=== PATIENT | male | born 1945 | race African-American/Black ===

== ENCOUNTER 2017-10-01 22:19 | Observation (INO) ==
--- NOTE | 2017-10-01 23:32 | Emergency Department Note ---
Disposition Clinical Impression: Syncope Qualifiers: Syncope type: unspecified Qualified Code(s): R55 - Syncope and collapse Closed head injury Qualifiers: Encounter type: initial encounter Qualified Code(s): S09.90XA - Unspecified injury of head, initial encounter Disposition: Admitted As Inpatient Condition: Good Referrals: NONE,PCP [Primary Care Provider] - Time of Disposition: 00:41 Syncope HPI - General Chief Complaint: ED Syncope Stated Complaint: Syncope Time Seen by Provider: 10/01/17 22:30 Mode of arrival: EMS Limitations: no limitations Nursing Notes Reviewed: Yes Vital Signs Reviewed: Yes - History of Present Illness Pt Subjective Complaint: loss of consciousness, felt faint, collapsed Onset (ago): Just [employer] Number of episodes: 1 Duration: second(s) Prodromal Symptoms: headache Witnessed: yes - by bystander Context: getting out of bed, standing up Injuries Sustained Associated with Event: none Current Symptoms: lightheaded History: none Treatments prior to arrival: none - Related Data Home Medications Medication Instructions Recorded Confirmed Acetaminophen [Tylenol] 650 mg PO QID PRN 08/27/15 08/27/15 Albuterol Neb [Proventil Neb] 2.5 mg IH DAILY PRN 08/27/15 08/27/15 Amlodipine [Amlodipine Besylate] 10 mg PO DAILY 08/27/15 08/27/15 Aspirin [Adult Low Dose Aspirin EC] 81 mg PO DAILY 08/27/15 08/27/15 Atorvastatin [Lipitor] 40 mg PO HS 08/27/15 08/27/15 Benztropine Mesylate 0.5 mg PO BID 08/27/15 08/27/15 Bisacodyl [Dulcolax] 10 mg PO DAILY 08/27/15 08/27/15 Cholecalciferol (Vitamin D3) 1,000 unit PO DAILY 08/27/15 08/27/15 [Vitamin D] Docusate [Colace] 100 mg PO BID 08/27/15 08/27/15 Ferrous Sulfate [Iron] 325 mg PO DAILY 08/27/15 08/27/15 LORazepam [Ativan] 1 mg PO BID PRN 08/27/15 08/27/15 Magnesium Oxide [Magnesium] 400 mg PO BID 08/27/15 08/27/15 Memantine [Namenda] 10 mg PO BID 08/27/15 08/27/15 OLANZapine [Zyprexa] 5 mg PO QAM 08/27/15 08/27/15 OLANZapine [Zyprexa] 25 mg PO HS 08/27/15 08/27/15 Sertraline [Zoloft] 100 mg PO DAILY 08/27/15 08/27/15 Sotalol [Betapace] 80 mg PO BID 08/27/15 08/27/15 metFORMIN [Glucophage] 500 mg PO BIDWM 08/27/15 08/27/15 traMADol [Ultram] 100 mg PO TID 08/27/15 08/27/15 Allergies Allergy/AdvReac Type Severity Reaction Status Date / Time [place] Allergy Mild See Verified 08/27/15 19:54 Comments All systems ED: reviewed and negative except as stated. Review of Systems: As Per HPI Constitutional: Denies: fever, chills ENT ED: Denies: ear pain, throat pain, dental pain, hearing loss Cardiovascular: Denies: chest pain, palpitations, dyspnea on exertion, orthopnea , edema Respiratory: Denies: cough, dyspnea, wheezes, hemoptysis, stridor Gastrointestinal: Denies: abdominal pain, nausea, vomiting, diarrhea, constipation, hematemesis, melena, hematochezia Genitourinary: Denies: urgency, dysuria, frequency, hematuria Musculoskeletal: Denies: back pain, neck pain, arthralgia, myalgia Neurological: Denies: headache, weakness, numbness, paresthesias, confusion Past Medical History - Past Medical History Attestation: Yes The following information was validated with the patient. Source: patient Medical history: Reports: diabetes, hypertension Psychiatric history: Reports: schizophrenia - Social History Smoking Status: Never smoker Smokeless Tobacco Status: No Alcohol use: Reports: none Drug use: Reports: none Physical Exam - General Limitations: no limitations General appearance: alert, in no apparent distress - Head Head exam: atraumatic, normocephalic, normal inspection - Eye Eye exam: Present: normal appearance, PERRL, EOMI - Neck Neck exam: Present: normal inspection, full ROM, trachea midline. Absent: tenderness, meningismus, lymphadenopathy - Chest Chest inspection: Present: normal inspection, symmetric chest wall rise. Absent : tenderness - Respiratory Respiratory exam: Present: normal lung sounds bilaterally - Cardiovascular Cardiovascular exam: Present: regular rate, normal rhythm, normal heart sounds - Abdominal Exam Abdominal exam: Present: soft, Non-Tender. Absent: tenderness, distention, guarding, rebound, rigidity - Extremities Exam Extremities exam: Present: normal inspection, full ROM, normal capillary refill. Absent: tenderness - Back Exam Back exam: Present: normal inspection - Neurological Exam Neurological exam: Present: alert, oriented X3, CN II-XII intact, normal gait - Skin Skin exam: Present: warm, dry, intact, normal color Course Course Narrative: pt seen and examined at the time of arrival. see hpi. pt is a very well appearing 71 yo male who presents from skilled facility for evaluation of syncope. pt denies any complaints or issues on transit. pt had hypotension today just prior to coming in according to the squad. pt ambulated from the ems cot to the bed without issue. pt is currently denying cp, sob, [place], vision changes, n/v/d, fever or chills. no recent illnesses, no trauma except for closed head injury from the fall. vss. afebrile. pt will have ct of the head and cervical spine. cxr will also be collected. screening labs for syncope ordered with troponin. pt is otherwise stable and in no distress. full work up and admission will be completed. pt is otherwise stable. - Reevaluation(s) Reevaluation #1: ekg, cxr, ct of the head and neck are neg. pt is stable. tolerated food by mouth. no other distress. pt is on cardiac medications including sotolal according to records from [facility] and [facility]. pt was discussed with dr. gray and he will complete admission for syncopal event. unknown whether the pt had episode of hypotension causing syncope or if the patient had an arrhythmia. pt is on a antiarrhythmic. pt stable. he also noted that he has been having dizziness on and off with some of the symptoms. pt does not have any acute stroke like symptoms but will need detailed neuro evaluation and cardiac evaluation prior to being d/c home. pt is in no distress with stable vs and tolerating po intake without issue. pt has remained ambulatory and in no distress throughout the ED treatment course. Time: 00:39 Vital Signs Temperature 98.6 F 10/01/17 22:28 Pulse Rate 57 10/01/17 22:28 Respiratory Rate 14 10/01/17 22:28 Blood Pressure 150/94 10/01/17 22:28 O2 Sat by Pulse Oximetry 98 10/01/17 22:28 Temperature 98.6 F 10/01/17 22:28 Pulse Rate 57 10/01/17 22:28 Respiratory Rate 14 10/01/17 22:28 Blood Pressure 150/94 10/01/17 22:28 O2 Sat by Pulse Oximetry 98 10/01/17 22:28 Oxygen Delivery Oxygen Delivery Room Air Syncope - MDM Narrative Medical decision making narrative: syncope, closed head injury, - Medical Records Medical records reviewed: Yes I reviewed the patient's medical records. - Lab Data Lab results reviewed: Yes I reviewed the patient's lab results. - Radiology Data Radiology results reviewed: Yes I reviewed the patient's radiology results. ct of the head and neck are neg. cxr stable. - EKG Data EKG attestation: Yes I reviewed and interpreted this EKG. EKG shows normal: sinus rhythm Rate: bradycardia Rhythm: NSR [place]/QRS: left axis deviation Voltage: increased voltage throughout, c/w LVH When compared to previous EKG there are: no significant changes Interpretation: no acute changes, unchanged when compared to prior tracing (date )
[2017-10-01 23:39] LABS: Basophils % 0.7 %; Eosinophils # 0.1 K/mcL (0.0-0.6); Eosinophils % 1.5 %; Hematocrit 36.9 % (37.5-50.1); Hemoglobin 11.5 g/dL (12.9-16.9); Immature Platelets 2.6 % (1.1-6.1); Lymphocytes # 1.7 K/mcL (0.6-4.6); Lymphocytes % 37.2 %; Mean Corpuscular HGB Conc 31.2 g/dL (31.6-35.5); Mean Corpuscular Hemoglobin 26.8 pg (28.0-33.3); Mean Platelet Volume 10.2 fL (9.4-12.4); Monocytes # 0.4 K/mcL (0.0-1.3); Monocytes % 7.6 %; Neutrophils # 2.4 K/mcL (1.6-8.9); Platelet Count 207 K/mcL (140-400); Red Blood Count 4.29 M/mcL (4.19-5.50)
[2017-10-01 23:56] LABS: BUN/Creatinine Ratio 17 (6-26); Blood Urea Nitrogen 23 mg/dL (8-23); Carbon Dioxide 29 mEq/L (23-29); Chloride 105 mEq/L (98-107); Glucose 104 mg/dL (70-105); Osmolality,Calculated 296 (280-300); Potassium 3.4 mEq/L (3.5-5.1); Sodium 141 mEq/L (136-145); eGFR For African Americans > 60 (> 60); eGFR For Non-African Americans 52 (> 60)
[2017-10-01 23:58] LABS: INR 1.1; Prothrombin Time 11.6 Seconds (9.4-12.1)
[2017-10-02 00:01] LABS: Activated Partial Thrombo Time 28.5 Seconds (26.0-36.0)
[2017-10-02] MEDS ORDERED: Potassium Chloride Elixir 20 MEQ/15 ML UDC PO ONE (02:07)
[2017-10-02] MEDS ORDERED: Naloxone 0.4 MG/ML INJ IVP PRN (02:08)
[2017-10-02] MEDS ORDERED: Acetaminophen 325 MG TABLET PO PRN (02:11)
--- NOTE | 2017-10-02 02:58 | Internal Med History&Physical ---
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 Qualifiers: Hypertension type: essential hypertension Qualified Code(s): I10 - Essential (primary) hypertension (3) DVT prophylaxis Current visit: Yes Status: Acute Heparin sc (4) Syncope Current visit: Yes Status: Acute Etiology is undetermined. - Place pt on continuous monitoring specialist to r/o arrhythmia - Echo - Duplex carotid - Orthostatic vitals. - As pt has diarrhea, check GI penal. Qualifiers: Syncope type: unspecified Qualified Code(s): R55 - Syncope and collapse Internal Medicine - H&P: HPI Chief complaint: syncope Admitted From: Home Plans for Post Hospital Care: Home History of present illness: Mr. Torres is a 71 year old male with Hx of DM and HTN sent from [place] to [place] for syncope. Per pt he started diet because he thought he has too much fat on belly for about 3 wks. He also has some diarrhea for wks. Today he black out and fall when he is walking. Denies any injury or pain on any part of body. Pt denies dizziness, feeling of hungry, palpitation, chest pain or SOB prior to syncope. Pt was admitted for further workup. Past Med Surg Social Fam HX - Past Medical History Medical history: diabetes, hypertension Psychiatric history: schizophrenia - Past Surgical History Surgical History: herniorrhaphy - Social History Smoking Status: Never smoker Smokeless Tobacco Status: No Alcohol use: none Drug use: none - Family History Mother History Unknown: Yes Internal Medicine - H&P: Meds Acetaminophen [Tylenol] 650 mg PO QID PRN 08/27/15 [History] Albuterol Neb [Proventil Neb] 2.5 mg IH DAILY PRN 08/27/15 [History] Amlodipine [Amlodipine Besylate] 10 mg PO DAILY 08/27/15 [History] Aspirin [Adult Low Dose Aspirin EC] 81 mg PO DAILY 08/27/15 [History] Atorvastatin [Lipitor] 40 mg PO HS 08/27/15 [History] Benztropine Mesylate 0.5 mg PO BID 08/27/15 [History] Bisacodyl [Dulcolax] 10 mg PO DAILY 08/27/15 [History] Cholecalciferol (Vitamin D3) [Vitamin D] 1,000 unit PO DAILY 08/27/15 [History] Docusate [Colace] 100 mg PO BID 08/27/15 [History] Ferrous Sulfate [Iron] 325 mg PO DAILY 08/27/15 [History] LORazepam [Ativan] 1 mg PO BID PRN 08/27/15 [History] Magnesium Oxide [Magnesium] 400 mg PO BID 08/27/15 [History] Memantine [Namenda] 10 mg PO BID 08/27/15 [History] OLANZapine [Zyprexa] 5 mg PO QAM 08/27/15 [History] OLANZapine [Zyprexa] 25 mg PO HS 08/27/15 [History] Sertraline [Zoloft] 100 mg PO DAILY 08/27/15 [History] Sotalol [Betapace] 80 mg PO BID 08/27/15 [History] metFORMIN [Glucophage] 500 mg PO BIDWM 08/27/15 [History] traMADol [Ultram] 100 mg PO TID 08/27/15 [History] 3 Allergy/AdvReac Type Severity Reaction Status Date / Time [place] Allergy Mild See Verified 08/27/15 19:54 Comments All Systems PM: A 10-system review of systems was performed and is negative for pertinent findings except as documented above in the HPI. - Constitutional Vitals: Temp Pulse Resp BP Pulse Ox 97.7 F 64 16 114/76 98 10/02/17 01:38 10/02/17 02:31 10/02/17 01:38 10/02/17 02:31 10/02/17 01:38 General appearance: Present: A&O X 3, no acute distress, answers questions appropriately - Head Head exam: Present: atraumatic, normocephalic - Eye Eye exam: Present: PERRL, conjuntiva pink, sclera anicteric Pupils: Present: PERRL - Neck Neck exam general surgery: Present: supple, trachea midline. Absent: lymphadenopathy - Respiratory Respiratory exam: Present: CTAB. Absent: accessory muscle use, rales, rhonchi, wheezes - Cardiovascular Cardiovascular exam: Present: RRR, +S1, +S2. Absent: diastolic murmur, gallop, rubs, systolic murmur - GI/Abdominal GI/Abdominal exam: Present: normal bowel sounds, soft, no peritoneal signs. Absent: distended, tenderness - Extremities Exam Extremities exam: Present: warm, radial pulses palpable and symmetrical. Absent : calf tenderness, cyanotic, pedal edema - Neurological Exam Neurological exam: Present: CN II-XII intact, oriented X3, no focal deficits. Absent: pronater drift, facial droop, speech deficit - Skin Skin exam: Present: dry, intact Internal Med - H&P Results - Labs CBC & Chem 7: 10/01/17 23:27 10/01/17 23:27 - EKG Data -: EKG Interpreted by Myself EKG shows normal: sinus rhythm Rate: normal
[2017-10-02 05:48] LABS: BUN/Creatinine Ratio 18 (6-26); Blood Urea Nitrogen 23 mg/dL (8-23); Calcium 9.3 mg/dL (8.6-10.3); Carbon Dioxide 29 mEq/L (23-29); Chloride 106 mEq/L (98-107); Glucose 112 mg/dL (70-105); Magnesium 2.2 mg/dL (1.6-2.6); Osmolality,Calculated 292 (280-300); Potassium 3.3 mEq/L (3.5-5.1); Sodium 139 mEq/L (136-145); eGFR For African Americans > 60 (> 60); eGFR For Non-African Americans 55 (> 60)
[2017-10-02 06:02] LABS: Basophils % 0.6 %; Eosinophils # 0.1 K/mcL (0.0-0.6); Eosinophils % 1.7 %; Hematocrit 31.1 % (37.5-50.1); Immature Granulocytes % 0.2 % (0-4); Lymphocytes # 1.6 K/mcL (0.6-4.6); Lymphocytes % 32.5 %; Mean Corpuscular HGB Conc 32.2 g/dL (31.6-35.5); Mean Corpuscular Hemoglobin 27.5 pg (28.0-33.3); Mean Corpuscular Volume 85.7 fL (83.0-100.0); Mean Platelet Volume 10.3 fL (9.4-12.4); Monocytes # 0.4 K/mcL (0.0-1.3); Monocytes % 9.2 %; Neutrophils # 2.7 K/mcL (1.6-8.9); Platelet Count 181 K/mcL (140-400); Red Blood Count 3.63 M/mcL (4.19-5.50); Segmented Neutrophils % 55.8 %
[2017-10-02 06:21] LABS: Bilirubin,Urine Negative (Negative); Blood,Urine Negative (Negative); Color,Urine Yellow (Yellow); Glucose,Urine (UA) Normal (Normal); Ketones,Urine Negative (Negative); Leukocyte Esterase,Urine Negative (Negative); Nitrite,Urine Negative (Negative); Protein,Urine Negative (Neg-Trace); Specific Gravity,Urine 1.021 (1.010-1.025); Urobilinogen,Urine Normal (Normal)
[2017-10-02 06:23] LABS: Hyaline Casts,Urine None Seen per lpf (None-Few); Squamous Epithelial Cell,Urine Moderate per lpf (None-Few)
[2017-10-02 06:26] LABS: Clarity,Urine Slightly Hazy (Clear)
[2017-10-02] MEDS: *HR* Heparin 5,000 UNIT/ML VIAL SQ SCH ×2 (06:29→18:09)
[2017-10-02 06:37] LABS: Bacteria,Urine Few per hpf (None-Few)
[2017-10-02] MEDS: amLODIPine 5 MG TABLET PO SCH (08:22)
[2017-10-02] MEDS: *HR* Metformin 500 MG TABLET PO SCH ×2 (08:22→18:09)
[2017-10-02] MEDS: Aspirin Enteric Coated 81 MG Tablet PO SCH (08:22)
[2017-10-02] MEDS: 0.9 % Sodium Chloride 1,000 ML IVC SCH ×2 (13:12→22:38)
--- NOTE | 2017-10-02 15:23 | Event Note ---
Date of Encounter: 10/02/17 Time of Encounter: 13:00 Patient presents with syncopal episode and found to be positive for orthostatic hypertension; echocardiogram and carotid Dopplers pending Patient also found to have acute renal failure suspected to be prerenal secondary to dehydration above Continue management with IV fluids
[2017-10-03] MEDS: *HR* Heparin 5,000 UNIT/ML VIAL SQ SCH ×2 (05:30→17:45)
[2017-10-03] MEDS: *HR* Metformin 500 MG TABLET PO SCH ×2 (08:48→17:44)
[2017-10-03] MEDS: amLODIPine 5 MG TABLET PO SCH (08:48)
[2017-10-03] MEDS: Aspirin Enteric Coated 81 MG Tablet PO SCH (08:48)
[2017-10-03 09:18] LABS: Basophils % 0.4 %; Eosinophils # 0.1 K/mcL (0.0-0.6); Eosinophils % 1.2 %; Hematocrit 33.5 % (37.5-50.1); Hemoglobin 10.4 g/dL (12.9-16.9); Immature Granulocytes % 0.2 % (0-4); Lymphocytes # 1.5 K/mcL (0.6-4.6); Lymphocytes % 29.3 %; Mean Corpuscular Hemoglobin 26.7 pg (28.0-33.3); Mean Corpuscular Volume 85.9 fL (83.0-100.0); Monocytes # 0.4 K/mcL (0.0-1.3); Monocytes % 7.1 %; Neutrophils # 3.1 K/mcL (1.6-8.9); Platelet Count 190 K/mcL (140-400); Red Cell Distribution Width 14.1 % (11.5-14.5); Segmented Neutrophils % 61.8 %
[2017-10-03 09:33] LABS: Alanine Aminotransferase 7 Units/L (7-52); Albumin 3.7 g/dL (3.5-5.7); Albumin/Globulin Ratio 1.5 (1.1-2.2); Alkaline Phosphatase 65 Units/L (34-104); Aspartate Amino Transferase 10 Units/L (13-39); BUN/Creatinine Ratio 16 (6-26); Bilirubin,Total 0.3 mg/dL (0.3-1.0); Blood Urea Nitrogen 16 mg/dL (8-23); Carbon Dioxide 22 mEq/L (23-29); Chloride 112 mEq/L (98-107); Globulin 2.4 g/dL (2.4-3.5); Glucose 156 mg/dL (70-105); Osmolality,Calculated 298 (280-300); Potassium 3.4 mEq/L (3.5-5.1); Sodium 142 mEq/L (136-145); Total Protein 6.1 g/dL (6.4-8.9); eGFR For African Americans > 60 (> 60); eGFR For Non-African Americans > 60 (> 60)
--- NOTE | 2017-10-03 11:00 | Cardiology Consult Note ---
Date of Encounter: 10/03/17 Time of Encounter: 10:57 Assessment and Plan (1) Syncope Current Visit: Yes Status: Acute s/p syncopal event. Likely orthostasis. Orthostatic b/p was positive. Cardiology consulted for arrytmia. EKG shows sinus bradycardia, HR 57 bpm. Telemetry review shows AVG HR 78 bpm over the last 24 hours. NSR. Lowest HR was55 bpm at 2:03 am. No significant bradycardia, pauses, or VT seen. Occasional sinus arrytmia. Occasional single PVC and PAC seen. No concerning arrhythmia to account for syncope. It was noted by the nursing staff that patient had possible VT. Rhythm reviewed and is artifact. Likely from patient's tremors. TTE completed showed normal EF. No significant valvular disease. Recommend pushing oral fluid intake. Given one liter IV fluid. Consider SARAH hose. Slow position change. Qualifiers: Syncope type: unspecified Qualified Code(s): R55 - Syncope and collapse Discussion w patient/family: The assessment and plan as outlined above was discussed with the patient and/or family members who expressed understanding and agreement. All questions were answered. Thank you for involving us in the care of your patient. Please call with any questions. History of Present Illness Consult date: 10/03/17 Requesting physician: Rocco Mcdonald Consult reason: Arrythmia Chief complaint: "I passed out." History of present illness: Mr. Torres is a 71 year old male with a past medical history of HTN, DM type II, TIA, and schizoprenia who presented after he passed out at home. He states he does not have any memory of what he was doing prior to the event. He remembers feeling the impact of the fall and slowly waking up. He denies dizziness, chest pain, palpitations, or diaphoresis leading up to the event. Denies vision changes or loss of bowel. He denies having pain anywhere after his fall. he experienced a similar event one year ago but did not seek medical attention. He was found to have positive orthostatic vital signs and ROYAL likely from dehydration. He states that he never drinks water. Past Med Surg Social Fam HX - Past Medical History Attestation: Yes The following information was validated with the patient. Medical history: diabetes, hypertension, TIA Psychiatric history: schizophrenia - Past Surgical History Surgical History: herniorrhaphy - Social History Smoking Status: Never smoker Smokeless Tobacco Status: No Alcohol use: none Drug use: none - Family History Mother History Unknown: Yes Medications and Allergies Acetaminophen [Tylenol] 650 mg PO QID PRN 08/27/15 [History] Amlodipine [Amlodipine Besylate] 10 mg PO DAILY 08/27/15 [History] Aspirin [Adult Low Dose Aspirin EC] 81 mg PO DAILY 08/27/15 [History] Atorvastatin [Lipitor] 40 mg PO HS 08/27/15 [History] Benztropine Mesylate 1 mg PO BID 08/27/15 [History] Bisacodyl [Dulcolax] 10 mg PO DAILY 08/27/15 [History] Cholecalciferol (Vitamin D3) [Vitamin D] 1,000 unit PO DAILY 08/27/15 [History] Docusate [Colace] 100 mg PO BID 08/27/15 [History] Ferrous Sulfate [Iron] 325 mg PO DAILY 08/27/15 [History] LORazepam [Ativan] 1 mg PO BID PRN 08/27/15 [History] Magnesium Oxide [Magnesium] 400 mg PO BID 08/27/15 [History] Memantine [Namenda] 10 mg PO BID 08/27/15 [History] Sertraline [Zoloft] 100 mg PO DAILY 08/27/15 [History] metFORMIN [Glucophage] 500 mg PO BIDWM 08/27/15 [History] 3 Allergy/AdvReac Type Severity Reaction Status Date / Time [place] Allergy Mild See Verified 08/27/15 19:54 Comments All Systems Review: A 10-system review of systems was performed and is negative for pertinent findings except as documented above in the HPI. Physical Examination Vital Signs Temp Pulse Resp BP Pulse Ox 10/03/17 06:34 98.3 F 74 16 144/78 95 10/03/17 04:01 98.0 F 66 14 142/81 93 10/03/17 00:38 98.8 F 65 12 120/71 96 10/02/17 21:27 98.8 F 65 16 126/64 97 10/02/17 15:41 98.3 F 72 15 114/73 97 10/02/17 12:15 98.9 F 66 14 103/69 96 Intake and Output 10/02/17 10/03/17 10/03/17 23:59 07:59 15:59 Intake Total 1700 / 1700 1000 / 1000 Output Total 175 / 175 Balance 1525 / 1525 1000 / 1000 Intake: IV Fluids 1000 / 1000 1000 / 1000 0.9 % Sodium Chloride 1,000 ML 1000 / 1000 1000 / 1000 @ 110 mls/hr IVC .Q9H6M [place] Rx# :[id number] Oral 700 / 700 Output: Urine 175 / 175 Other: Meal Dinner Percent of Meal Consumed 75% Stool Size Moderate Small Stool Consistency soft loose Stool Color Brown Brown # Urine Diapers 1 # Bowel Movements 1 # Bowel Movement Diapers 1 Blood Glucose* 91 88 General: Conversant, No Apparent Distress HEENT: Atraumatic, Normocephaly, Mucus Membranes Moist Neck: No JVD, Normal carotid pulses Cardiac: Reg Rate and Rhythm, Normal S1 and S2, No Murmur Lungs: Normal Breath Sounds, No Wheeze, Rales, Rhonchi Neuro: Alert and responsive, No focal deficits noted Abdomen: Soft, Non-Tender Skin: No rashes noted on visualized skin Musculoskeletal: No Chest Wall Tenderness Extremities: No Clubbing, No Cyanosis, No Edema, Normal Pulses Results 10/03/17 09:01 10/03/17 09:01 Lab Results 10/03/17 10/03/17 09:01 09:01 WBC 5.0 Hgb 10.4 L Hct 33.5 L Plt Count 190 Sodium 142 Potassium 3.4 L Chloride 112 H Carbon Dioxide 22 L BUN 16 Creatinine 0.99 Glucose 156 H Calcium 9.0 Total Bilirubin 0.3 AST 10 L ALT 7 Alkaline Phosphatase 65 - Imaging and Cardiology Echo: report reviewed - EKG Interpretation EKG results cardiology: personally reviewed Consult Discharge Plan - Plan Referrals: NONE,PCP [Primary Care Provider] -
--- NOTE | 2017-10-03 16:35 | Discharge Summary ---
Date of Encounter: 10/03/17 Time of Encounter: 11:00 - Discharge Diagnosis (1) Orthostatic hypotension Priority: Primary Status: Acute - Discharge Medications Home Medications: Acetaminophen [Tylenol] 650 mg PO QID PRN 08/27/15 [History] Amlodipine [Amlodipine Besylate] 10 mg PO DAILY 08/27/15 [History] Aspirin [Adult Low Dose Aspirin EC] 81 mg PO DAILY 08/27/15 [History] Atorvastatin [Lipitor] 40 mg PO HS 08/27/15 [History] Benztropine Mesylate 1 mg PO BID 08/27/15 [History] Bisacodyl [Dulcolax] 10 mg PO DAILY 08/27/15 [History] Cholecalciferol (Vitamin D3) [Vitamin D] 1,000 unit PO DAILY 08/27/15 [History] Docusate [Colace] 100 mg PO BID 08/27/15 [History] Ferrous Sulfate [Iron] 325 mg PO DAILY 08/27/15 [History] LORazepam [Ativan] 1 mg PO BID PRN 08/27/15 [History] Magnesium Oxide [Magnesium] 400 mg PO BID 08/27/15 [History] Memantine [Namenda] 10 mg PO BID 08/27/15 [History] Sertraline [Zoloft] 100 mg PO DAILY 08/27/15 [History] metFORMIN [Glucophage] 500 mg PO BIDWM 08/27/15 [History] Allergies/Adverse Reactions: 3 Allergy/AdvReac Type Severity Reaction Status Date / Time [place] Allergy Mild See Verified 08/27/15 19:54 Comments Procedures/tests Complete & Pending: Procedures Performed prior 72 hours Category Date Time Status EV carotid duplex imaging BI Routine Y 10/03/17 02:09 Completed EV echocardiogram Routine Y 10/03/17 02:09 Completed Date of admission: 10/02/17 00:45 Primary care physician: PCP NONE Consults: 10/03/17 08:08 Consult to Cardiology [CONS] Routine Comment: Consulting Provider: Cardiology Betsy Reason for Consult: arrhythmia-Dr. Mcdonald to call Call Completed: No - Patient Status Disposition: Transfer LTC Condition: Good - Discharge Instructions Follow Up With: NONE,PCP [Primary Care Provider] - Hospital course: Patient is a 71-year-old male with past medical history significant for diabetes and hypertension who was sent to the ER by [facility] on 10/02/17 due to syncopal episode. Patient reported starting a diet approximately 3 weeks ago for weight loss and has had some diarrhea. Patient states that while walking he certainly blacked out while walking. Patient was brought to [facility] During patients hospital stay he was found to have orthostatic hypotension and IV fluids were given. Patient did not have any further syncopal episodes. Cardiology was consulted and echocardiogram was reviewed which show normal LVEF of 60% without any significant valvular dysfunction or pulmonary hypertension. Carotid Dopplers were normal as well. Patient will be discharged back to [facility] to continue fluid hydration. - Time Spent with Patient Total time spent providing and/or coordinating discharge services: Less than 30 minutes - Constitutional Vitals: Temp Pulse Resp BP Pulse Ox 98.5 F 60 18 174/99 97 10/03/17 16:03 10/03/17 16:03 10/03/17 16:03 10/03/17 16:03 10/03/17 16:03 General appearance: Present: A&O X 3, no acute distress, answers questions appropriately - Respiratory Respiratory exam: Present: CTAB. Absent: accessory muscle use, rales, rhonchi, wheezes - Cardiovascular Cardiovascular exam: Present: RRR, +S1, +S2. Absent: diastolic murmur, gallop, rubs, systolic murmur
--- NOTE | 2017-10-03 16:37 | Physician Discharge Referral ---
ExtendedCare Referral Info Institutional Level of Care: Skilled - Diagnosis (1) Orthostatic hypotension Status: Acute - Transfer Medications Home Medications: Acetaminophen [Tylenol] 650 mg PO QID PRN 08/27/15 [History] Amlodipine [Amlodipine Besylate] 10 mg PO DAILY 08/27/15 [History] Aspirin [Adult Low Dose Aspirin EC] 81 mg PO DAILY 08/27/15 [History] Atorvastatin [Lipitor] 40 mg PO HS 08/27/15 [History] Benztropine Mesylate 1 mg PO BID 08/27/15 [History] Bisacodyl [Dulcolax] 10 mg PO DAILY 08/27/15 [History] Cholecalciferol (Vitamin D3) [Vitamin D] 1,000 unit PO DAILY 08/27/15 [History] Docusate [Colace] 100 mg PO BID 08/27/15 [History] Ferrous Sulfate [Iron] 325 mg PO DAILY 08/27/15 [History] LORazepam [Ativan] 1 mg PO BID PRN 08/27/15 [History] Magnesium Oxide [Magnesium] 400 mg PO BID 08/27/15 [History] Memantine [Namenda] 10 mg PO BID 08/27/15 [History] Sertraline [Zoloft] 100 mg PO DAILY 08/27/15 [History] metFORMIN [Glucophage] 500 mg PO BIDWM 08/27/15 [History] Allergies/Adverse Reactions: 3 Allergy/AdvReac Type Severity Reaction Status Date / Time [place] Allergy Mild See Verified 08/27/15 19:54 Comments - Respiratory Orders Smoking Cessation: Smoking cessation has been advised. For more information, call the [place] Tobacco Quit Line at 8-325-XSKG-NOW. CERTIFICATION: I certify that the transfer of the above named patient to an Extended Care Facility is necessary for the continuing treatment of the diagnosis listed. The above information is true and accurate reflection of patient's current condition. Confidential - Redisclosure prohibited without a patient's written consent.
[2017-10-03] MEDS ORDERED: *HR* Enoxaparin 40 MG/0.4 ML SYRINGE SQ ONE (21:40)
--- NOTE | 2017-10-03 21:46 | Event Note ---
Date of Encounter: 10/03/17 Time of Encounter: 21:45 Patient has new onset of atrial flutter and atrial fibrillation. No anti- coagulation. Discontinued SQ heparin for DVT prophylaxis and ordered 40 mg Lovenox to be given SQ now. Cardiology consult ordered. A.M. team to f/u w/ cardiology to ensure they are aware of pt., situation, and consult.
[2017-10-03] MEDS ORDERED: *HR* LORazepam 2 MG/ML VIAL IVP ONE (23:26)
[2017-10-03] MEDS ORDERED: *HR* LORazepam 2 MG/ML VIAL ONE (23:29)
[2017-10-04] MEDS ORDERED: *HR* LORazepam 2 MG/ML VIAL IVP PRN (00:29)
[2017-10-04] MEDS: Aspirin Enteric Coated 81 MG Tablet PO SCH (08:03)
[2017-10-04] MEDS: *HR* Metformin 500 MG TABLET PO SCH (08:03)
[2017-10-04] MEDS: amLODIPine 5 MG TABLET PO SCH (08:04)
--- NOTE | 2017-10-04 10:09 | Cardiology Progress Note ---
Date of Encounter: 10/04/17 Time of Encounter: 10:05 Assessment and Plan (1) Atrial fibrillation Current Visit: Yes Status: Acute Patient developed rate controlled atrial fibrillation last night. He was asymptomatic. Cardiology re-consulted to discuss. Telemetry review shows sr -atrial fibrillation. AVg HR 78 bpm. There is frequent artifact from his tremors. AT 1:47 am he is noted to have several minutes of atrial fibrillation. HR 80 bpm. Currently NSR. Add low dose beta-bob. Re-place potassium. TTE shows preserved EF and no significant valvular disease. Check TSH. In regards to AC, he is a CHADS VASc = 5 (HTN, DM, age, TIA2). Anticoagulation with coumadin or NOAC is recommended . It is noted that he has schizophrenia and lives in a correction. Coumadin would likely be difficult due to blood draws. There is a concern for compliance as well. Due to high CHADS VASc score we will start eliquis. RX printed for porras check. Recommend home health at discharge to help assess medication administration if it is not available at the correction. Qualifiers: Atrial fibrillation type: unspecified Qualified Code(s): I48.91 - Unspecified atrial fibrillation (2) Syncope Current Visit: Yes Status: Acute s/p syncopal event. Likely orthostasis. Orthostatic b/p was positive. Cardiology consulted for arrytmia. EKG shows sinus bradycardia, HR 57 bpm. No concerning arrhythmia seen to account for syncope. It was noted by the nursing staff that patient had possible VT. Rhythm reviewed and is artifact. Likely from patient's tremors. TTE completed showed normal EF. No significant valvular disease. Recommend pushing oral fluid intake. Given one liter IV fluid. Consider SARAH hose. Slow position change. Qualifiers: Syncope type: unspecified Qualified Code(s): R55 - Syncope and collapse Discussion w patient/family: The assessment and plan as outlined above was discussed with the patient and/or family members who expressed understanding and agreement. All questions were answered. Thank you for involving us in the care of your patient. Please call with any questions. Subjective Principal diagnosis: afib new diagnosis Interval history: Cardiology re-consulted for atrial fibrillation Objective Vital Signs, Last 4 Hours Temp Pulse Resp BP Pulse Ox 10/04/17 07:20 99.0 F 67 15 132/75 95 General: Conversant, No Apparent Distress HEENT: Atraumatic, Normocephaly, Mucus Membranes Moist Neck: No JVD, Normal carotid pulses Cardiac: Reg Rate and Rhythm, Normal S1 and S2, No Murmur Lungs: Normal Breath Sounds, No Wheeze, Rales, Rhonchi Neuro: Alert and responsive, No focal deficits noted Abdomen: Soft, Non-Tender Skin: No rashes noted on visualized skin Musculoskeletal: No Chest Wall Tenderness Extremities: No Clubbing, No Cyanosis, No Edema, Normal Pulses Results 10/03/17 09:01 10/03/17 09:01 - Imaging and Cardiology Echo: report reviewed - EKG Interpretation EKG results cardiology: personally reviewed Consult Discharge Plan - Plan Referrals: NONE,PCP [Primary Care Provider] - Prescriptions: Apixaban [Eliquis] 5 mg PO BID #60 tablet
[2017-10-04 10:49] VITALS: BP 120/76
--- NOTE | 2017-10-04 11:18 | Event Note ---
Date of Encounter: 10/04/17 Time of Encounter: 11:10
--- NOTE | 2017-10-05 01:49 | Electrocardiograph Report ---
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
--- NOTE | 2017-10-06 20:30 | Electrocardiograph Report ---
[place] [address] Test Date: 2017-10-03 Pat Name: Lam Torres Department: 113 Room: 3B Gender: M Filing Clerk: : 1945 Requested By: Mio Tran Order Number: [id number] Reading MD: Leandra Chowdary Measurements Intervals [place] Rate: 79 P: 44 NV: 161 QRS: -48 QRSD: 119 T: 99 QT: 425 QTc: 459 Interpretive Statements ARTIFACT LIMITS INTERPRETATION OF RHYTHM LEFT ANTERIOR FASCICULAR BLOCK Electronically Signed On 10-06-2017 20:28:36 EST by Leandra Chowdary
--- NOTE | 2017-10-06 20:49 | Electrocardiograph Report ---
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
--- NOTE | 2017-10-06 20:51 | Electrocardiograph Report ---
[place] [address] Test Date: 2017-10-03 Pat Name: Lam Torres Department: 114 Room: 3B Gender: M Metrology Specialist: [facility] : 1945 Requested By: Rocco Mcdonald Order Number: [id number] Reading MD: Leandra Chowdary Measurements Intervals [place] Rate: 62 P: 19 RI: 165 QRS: -39 QRSD: 114 T: 77 QT: 415 QTc: 420 Interpretive Statements SINUS RHYTHM LEFT AXIS DEVIATION IVCD Electronically Signed On 10-06-2017 20:49:58 EST by Leandra Chowdary
--- NOTE | 2017-10-07 09:05 | Electrocardiograph Report ---
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
== END 2017-10-04 12:01 ==
LOC: 3NENU 22:19 → EMEROO 22:19 → SUATTDRO 10-02 00:45 → 3NENU 10-02 01:21 → 3BNU 10-03 16:02
PROVIDERS: ADMIT Internal Medicine; ATTEND Hospitalist

== ENCOUNTER 2017-10-21 18:17 | Inpatient (IN) ==
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
--- NOTE | 2017-10-21 19:02 | Emergency Department Note ---
Disposition Clinical Impression: Cerebrovascular accident Qualifiers: CVA mechanism: unspecified Qualified Code(s): I63.9 - Cerebral infarction, unspecified HTN (hypertension) Qualifiers: Hypertension type: essential hypertension Qualified Code(s): I10 - Essential ( primary) hypertension Disposition: Admitted As Inpatient Condition: Fair Time of Disposition: 21:21 General Adult HPI - General Stated complaint: Aphasic/behavior changes Time Seen by Provider: 10/21/17 18:20 Source: EMS Mode of arrival: EMS Limitations: altered mental status Nursing Notes Reviewed: Yes Vital Signs Reviewed: Yes - History of Present Illness HPI Narrative: Patient is a 71-year-old male who presents to [facility] ED with a chief complaint of not talking and weakness. Patient's was sent over by the senior care with concern for stroke. Patient has been intermittently verbally responsive. He initially took a lot of prompting to respond to any questioning. He is able to tell us his name. Intermittently follows some commands. Does seem to have some left-sided weakness greater than the right. Past medical history significant for schizophrenia and it is on known if this is more psychological or organic. Patient has presented similar to this in the past. Onset (ago): Just [employer] Improves with: nothing Worsens with: nothing Treatments Prior to Arrival: none - Related Data Home Medications Medication Instructions Recorded Confirmed Acetaminophen [Tylenol] 650 mg PO QID PRN 08/27/15 10/03/17 Amlodipine [Amlodipine Besylate] 10 mg PO DAILY 08/27/15 10/03/17 Aspirin [Adult Low Dose Aspirin EC] 81 mg PO DAILY 08/27/15 10/03/17 Atorvastatin [Lipitor] 40 mg PO HS 08/27/15 10/03/17 Cholecalciferol (Vitamin D3) 1,000 unit PO DAILY 08/27/15 10/03/17 [Vitamin D3] Docusate [Colace] 100 mg PO BID 08/27/15 10/03/17 Magnesium Oxide [Magnesium] 400 mg PO BID 08/27/15 10/03/17 Sertraline [Zoloft] 100 mg PO DAILY 08/27/15 10/03/17 metFORMIN [Glucophage] 500 mg PO BIDWM 08/27/15 10/03/17 Ammonium Lactate [Lac-Hydrin Five] 1 appl TP DAILY 10/21/17 10/21/17 Benztropine [Cogentin] 1 mg PO BID 10/21/17 10/21/17 Losartan [Cozaar] 12.5 mg PO QPM 10/21/17 10/21/17 Memantine HCl 10 mg PO BID 10/21/17 10/21/17 OLANZapine [Zyprexa] 5 mg PO QAM 10/21/17 10/21/17 OLANZapine [Zyprexa] 25 mg PO HS 10/21/17 10/21/17 Sotalol [Betapace] 80 mg PO Q12HR 10/21/17 10/21/17 hydroCHLOROthiazide 6.25 mg PO DAILY 10/21/17 10/21/17 [Hydrochlorothiazide] Previous Rx's Medication Instructions Recorded Apixaban [Eliquis] 5 mg PO BID #60 tablet 10/04/17 Allergies Allergy/AdvReac Type Severity Reaction Status Date / Time Eugenio Saenz Allergy Mild See Verified 10/21/17 20:20 Comments lisinopril Allergy See Verified 10/21/17 20:20 Comments Limitations: ROS unobtainable due to patients medical condition Past Medical History - Past Medical History Attestation: Yes The following information was validated with the patient. Source: patient Medical history: Reports: diabetes, hypertension, TIA Surgical history: Reports: herniorrhaphy Psychiatric history: Reports: schizophrenia - Social History Smoking Status: Never smoker Smokeless Tobacco Status: No Alcohol use: Reports: none Drug use: Reports: none Physical Exam - General Limitations: altered mental status, physical limitation General appearance: alert - Head Head exam: atraumatic, normocephalic, normal inspection - Eye Eye exam: Present: normal appearance, PERRL, EOMI - ENT ENT exam: normal exam, normal oropharynx, mucous membranes moist - Neck Neck exam: Present: normal inspection, full ROM, trachea midline - Chest Chest inspection: Present: normal inspection, symmetric chest wall rise - Respiratory Respiratory exam: Present: normal lung sounds bilaterally - Cardiovascular Cardiovascular exam: Present: regular rate, normal rhythm, normal heart sounds - Abdominal Exam Abdominal exam: Present: soft, Non-Tender. Absent: tenderness, distention, guarding, rebound, rigidity - Extremities Exam Extremities exam: Present: normal inspection, full ROM. Absent: tenderness, pedal edema - Back Exam Back exam: Present: normal inspection, full ROM. Absent: tenderness - Neurological Exam Neurological exam: Present: alert, motor sensory deficit (Decreased strength in bilateral lower extremities and left upper extremity greater than right upper extremity) - Psychiatric Psychiatric exam: Present: normal affect, normal mood - Skin Skin exam: Present: warm, dry, intact, normal color Course Course Narrative: Patient seen and examined. Minimally verbally responsive to questions. However able to tell us his name and date of . He has decreased strength in bilateral lower extremities and left upper extremity. Patient has presented similar to this in the past. CVA workup initiated. - Reevaluation(s) Reevaluation #1: CT head shows acute to subacute infarct in the L clau. Labwork otherwise unremarkable. Discussed with hospitalist who has accepted patient for admission. Time: 20:20 Vital Signs Temperature 98.5 F 10/21/17 18:31 Pulse Rate 87 10/21/17 18:31 Respiratory Rate 18 10/21/17 18:31 Blood Pressure 200/109 10/21/17 18:31 O2 Sat by Pulse Oximetry 97 10/21/17 18:31 Temperature 98.5 F 10/21/17 18:31 Pulse Rate 80 10/21/17 21:01 Respiratory Rate 18 10/21/17 21:05 Blood Pressure 175/89 10/21/17 21:05 O2 Sat by Pulse Oximetry 96 10/21/17 19:46 Oxygen Delivery Oxygen Delivery Room Air Medical Decision Making - [facility] Narrative Medical decision making narrative: EKG performed at 1945 hrs. showing a sinus rhythm, rate is 64, QRS is 123, QTC is 448, he has a sinus rhythm left axis deviation has Q waves in inferior leads , no signs of acute ischemia, compared this with an EKG he had done earlier this month and showed no changes except for rate. - Medical Records Medical records reviewed: Yes I reviewed the patient's medical records. - Lab Data Lab results reviewed: Yes I reviewed the patient's lab results. Result diagrams: 10/21/17 18:46 10/21/17 18:46 Lab Results 10/21/17 10/21/17 10/21/17 Range/Units 18:39 18:46 18:46 WBC 6.0 (4.3-11.1) K/mcL RBC 4.51 (4.19-5.50) M/mcL Hgb 12.2 L (12.9-16.9) g/dL Hct 38.6 (37.5-50.1) % MCV 85.6 (83.0-100.0) fL MCH 27.1 L (28.0-33.3) pg MCHC 31.6 (31.6-35.5) g/dL RDW 14.7 H (11.5-14.5) % Plt Count 275 (140-400) K/mcL MPV 9.5 (9.4-12.4) fL Immature Gran % 0.5 (0-4) % Seg Neutrophils % 64.4 % Lymphocytes % 27.9 % Monocytes % 6.0 % Eosinophils % 0.7 % Basophils % 0.5 % Neutrophils # 3.9 (1.6-8.9) K/mcL Lymphocytes # 1.7 (0.6-4.6) K/mcL Monocytes # 0.4 (0.0-1.3) K/mcL Eosinophils # 0.0 (0.0-0.6) K/mcL Basophils # 0.0 (0.0-0.2) K/mcL Sodium 139 (136-145) mEq/L Potassium 3.9 (3.5-5.1) mEq/L Chloride 103 (98-107) mEq/L Carbon Dioxide 28 (23-29) mEq/L BUN 14 (8-23) mg/dL Creatinine 1.09 (0.70-1.30) mg/dL Est GFR ( Amer) > 60 (> 60) Est GFR (Non-Af Amer) > 60 (> 60) BUN/Creatinine Ratio 13 (6-26) Glucose 120 H (70-105) mg/dL POC Glucose 120 H (58-89) Calculated Osmolality 290 (280-300) Calcium 10.4 H (8.6-10.3) mg/dL Total Bilirubin 0.5 (0.3-1.0) mg/dL AST 15 (13-39) Units/L ALT 11 (7-52) Units/L Alkaline Phosphatase 82 (34-104) Units/L Serum Total Protein 7.3 (6.4-8.9) g/dL Albumin 4.7 (3.5-5.7) g/dL Globulin 2.6 (2.4-3.5) g/dL Albumin/Globulin Ratio 1.8 (1.1-2.2) Urine Color (Yellow) Urine Clarity (Clear) Urine pH (5.0-8.0) pH Units Ur Specific [place] (1.010-1.025) Urine Protein (Neg-Trace) mg/dL Urine Glucose (UA) (Normal) mg/dL Urine Ketones (Negative) mg/dL Urine Blood (Negative) Urine Nitrite (Negative) Urine Bilirubin (Negative) Urine Urobilinogen (Normal) mg/dL Ur Leukocyte Esterase (Negative) Ur Culture Indicated? (NO) Ethyl Alcohol < 10 (0-10) mg/dL 10/21/17 Range/Units 19:50 WBC (4.3-11.1) K/mcL RBC (4.19-5.50) M/mcL Hgb (12.9-16.9) g/dL Hct (37.5-50.1) % MCV (83.0-100.0) fL MCH (28.0-33.3) pg MCHC (31.6-35.5) g/dL RDW (11.5-14.5) % Plt Count (140-400) K/mcL MPV (9.4-12.4) fL Immature Gran % (0-4) % Seg Neutrophils % % Lymphocytes % % Monocytes % % Eosinophils % % Basophils % % Neutrophils # (1.6-8.9) K/mcL Lymphocytes # (0.6-4.6) K/mcL Monocytes # (0.0-1.3) K/mcL Eosinophils # (0.0-0.6) K/mcL Basophils # (0.0-0.2) K/mcL Sodium (136-145) mEq/L Potassium (3.5-5.1) mEq/L Chloride (98-107) mEq/L Carbon Dioxide (23-29) mEq/L BUN (8-23) mg/dL Creatinine (0.70-1.30) mg/dL Est GFR ( Amer) (> 60) Est GFR (Non-Af Amer) (> 60) BUN/Creatinine Ratio (6-26) Glucose (70-105) mg/dL POC Glucose (58-89) Calculated Osmolality (280-300) Calcium (8.6-10.3) mg/dL Total Bilirubin (0.3-1.0) mg/dL AST (13-39) Units/L ALT (7-52) Units/L Alkaline Phosphatase (34-104) Units/L Serum Total Protein (6.4-8.9) g/dL Albumin (3.5-5.7) g/dL Globulin (2.4-3.5) g/dL Albumin/Globulin Ratio (1.1-2.2) Urine Color Yellow (Yellow) Urine Clarity Clear (Clear) Urine pH 7.0 (5.0-8.0) pH Units Ur Specific [place] < 1.005 L (1.010-1.025) Urine Protein Negative (Neg-Trace) mg/dL Urine Glucose (UA) Normal (Normal) mg/dL Urine Ketones Negative (Negative) mg/dL Urine Blood Negative (Negative) Urine Nitrite Negative (Negative) Urine Bilirubin Negative (Negative) Urine Urobilinogen Normal (Normal) mg/dL Ur Leukocyte Esterase Negative (Negative) Ur Culture Indicated? NO (NO) Ethyl Alcohol (0-10) mg/dL - Radiology Data Radiology results reviewed: Yes I reviewed the patient's radiology results. Chest X-Ray 10/21/17 18:23 IMPRESSION: No acute process. D/ / He Mancini MD / He Mancini MD Interpreting Provider: He Mancini MD Head CT 10/21/17 18:23 IMPRESSION: Low-attenuation within the left clau worrisome for acute to subacute infarct. No acute hemorrhage. Findings were called the ordering service at 7:06 pm on 10/21/2017. D/ / Doris Alegre Cha, MD / Doris Alegre Cha, MD Interpreting Provider: Doris Alegre Cha, MD
[2017-10-21 19:03] LABS: Basophils % 0.5 %; Eosinophils % 0.7 %; Hematocrit 38.6 % (37.5-50.1); Hemoglobin 12.2 g/dL (12.9-16.9); Immature Granulocytes % 0.5 % (0-4); Lymphocytes # 1.7 K/mcL (0.6-4.6); Lymphocytes % 27.9 %; Mean Corpuscular HGB Conc 31.6 g/dL (31.6-35.5); Mean Corpuscular Hemoglobin 27.1 pg (28.0-33.3); Mean Corpuscular Volume 85.6 fL (83.0-100.0); Mean Platelet Volume 9.5 fL (9.4-12.4); Monocytes # 0.4 K/mcL (0.0-1.3); Neutrophils # 3.9 K/mcL (1.6-8.9); Platelet Count 275 K/mcL (140-400); Red Blood Count 4.51 M/mcL (4.19-5.50); Red Cell Distribution Width 14.7 % (11.5-14.5); Segmented Neutrophils % 64.4 %
[2017-10-21 19:12] LABS: Ethanol < 10 mg/dL (0-10)
[2017-10-21 19:16] LABS: Alanine Aminotransferase 11 Units/L (7-52); Albumin 4.7 g/dL (3.5-5.7); Albumin/Globulin Ratio 1.8 (1.1-2.2); Alkaline Phosphatase 82 Units/L (34-104); Aspartate Amino Transferase 15 Units/L (13-39); BUN/Creatinine Ratio 13 (6-26); Bilirubin,Total 0.5 mg/dL (0.3-1.0); Blood Urea Nitrogen 14 mg/dL (8-23); Calcium 10.4 mg/dL (8.6-10.3); Carbon Dioxide 28 mEq/L (23-29); Chloride 103 mEq/L (98-107); Globulin 2.6 g/dL (2.4-3.5); Glucose 120 mg/dL (70-105); Osmolality,Calculated 290 (280-300); Potassium 3.9 mEq/L (3.5-5.1); Sodium 139 mEq/L (136-145); Total Protein 7.3 g/dL (6.4-8.9); eGFR For African Americans > 60 (> 60); eGFR For Non-African Americans > 60 (> 60)
[2017-10-21] MEDS ORDERED: Aspirin 81 MG TAB.CHEW PO STA (19:19)
[2017-10-21 20:03] LABS: Bilirubin,Urine Negative (Negative); Blood,Urine Negative (Negative); Clarity,Urine Clear (Clear); Color,Urine Yellow (Yellow); Glucose,Urine (UA) Normal (Normal); Ketones,Urine Negative (Negative); Leukocyte Esterase,Urine Negative (Negative); Nitrite,Urine Negative (Negative); Protein,Urine Negative (Neg-Trace); Specific Gravity,Urine < 1.005 (1.010-1.025); Urobilinogen,Urine Normal (Normal)
[2017-10-21] MEDS ORDERED: Naloxone 0.4 MG/ML INJ IVP PRN (20:32)
[2017-10-21] MEDS ORDERED: Acetaminophen 325 MG TABLET PO PRN (20:32)
[2017-10-21] MEDS ORDERED: Dextrose Gel 15 GM/37.5 ML TUBE PO PRN ×2 (20:39)
[2017-10-21] MEDS ORDERED: *HR* Dextrose 50 % in Water (Syg) 50 ML SYRINGE IVP PRN (20:39)
[2017-10-21] MEDS ORDERED: D5% in Water 1,000 ML IVC PRN (20:39)
[2017-10-21] MEDS ORDERED: 0.9 % Sodium Chloride w KCl 20 MEQ/1,000 ML MLS IVC SCH (20:45)
--- NOTE | 2017-10-21 20:47 | Internal Med History&Physical ---
Date of Encounter: 10/21/17 Time of Encounter: 20:05 Assessment and Plan (1) Cerebrovascular accident Current visit: Yes Status: Acute 1. Will consult PT/OT/ST, and Neurology to assist with evaluation. 2. Will order MRI brain to confirm stroke findings on head CT. 3. Will order ECHO and carotid Dopplers. 4. ASA, STATIN daily. Qualifiers: CVA mechanism: unspecified Qualified Code(s): I63.9 - Cerebral infarction, unspecified (2) HTN (hypertension) Current visit: Yes Status: Chronic 1. Will monitor BP closely and allow autoregulation. 2. Hold home BP meds for now, treat with PRN hydralazine for now for SBP > 180. Qualifiers: Hypertension type: essential hypertension Qualified Code(s): I10 - Essential (primary) hypertension (3) Diabetes mellitus Current visit: Yes Status: Chronic 1. Hold home meds. 2. Will monitor glucose closely and use SSI. 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 Heparin SQ. Internal Medicine - H&P: HPI Chief complaint: altered speech; altered mental state Admitted From: Emergency Dept Plans for Post Hospital Care: Transfer Other History of present illness: Mr. Torres is a 71 year old male who presented to the ER from his care home for concerns of altered/slurred speech and altered mental status according to nursing staff at the care home. According to my discussions with the ER staff , patient was nonverbal and unable to provide any history upon presentation. Workup was initiated, including CT of the head which revealed an acute versus subacute stroke. He also had markedly elevated blood pressure with systolic of 200. He was admitted to hospitalist service for further care. Upon my assessment of the patient in the ER, he is now alert, oriented to time, place, and situation, and states that he was sent here for concerns of possible stroke. He states he lives in a care home and that the staff noted he was not acting normally or speaking normally. During my interview, his speech is somewhat mumbled and garbled, but he states this is his normal baseline speech. He has no teeth and talks like this chronically. He denies any numbness, weakness, or any focal deficits. His blood pressure currently is 172/87. He denies any prior strokes or TIAs. He is diabetic and hypertensive, which puts him at increased risk for stroke. Past Med Surg Social Fam HX - Past Medical History Attestation: Yes The following information was validated with the patient. Source: patient, old records reviewed, other (discussions w ER staff) Medical history: diabetes, hypertension, TIA Psychiatric history: schizophrenia - Past Surgical History Surgical History: herniorrhaphy - Social History Smoking Status: Never smoker Smokeless Tobacco Status: No Alcohol use: none Drug use: none Current living situation: [facility] Activity Level: Independent ambulation Recent Out of Country Travel Within the Last 8 Weeks: No - Family History Mother History Unknown: Yes Father History Unknown: Yes Internal Medicine - H&P: Meds Acetaminophen [Tylenol] 650 mg PO QID PRN 08/27/15 [History] Amlodipine [Amlodipine Besylate] 10 mg PO DAILY 08/27/15 [History] Aspirin [Adult Low Dose Aspirin EC] 81 mg PO DAILY 08/27/15 [History] Atorvastatin [Lipitor] 40 mg PO HS 08/27/15 [History] Cholecalciferol (Vitamin D3) [Vitamin D3] 1,000 unit PO DAILY 08/27/15 [History] Docusate [Colace] 100 mg PO BID 08/27/15 [History] Magnesium Oxide [Magnesium] 400 mg PO BID 08/27/15 [History] Sertraline [Zoloft] 100 mg PO DAILY 08/27/15 [History] metFORMIN [Glucophage] 500 mg PO BIDWM 08/27/15 [History] Apixaban [Eliquis] 5 mg PO BID #60 tablet 10/04/17 [Rx] Ammonium Lactate [Lac-Hydrin Five] 1 appl TP DAILY 10/21/17 [History] Benztropine [Cogentin] 1 mg PO BID 10/21/17 [History] Losartan [Cozaar] 12.5 mg PO QPM 10/21/17 [History] Memantine HCl 10 mg PO BID 10/21/17 [History] OLANZapine [Zyprexa] 5 mg PO QAM 10/21/17 [History] OLANZapine [Zyprexa] 25 mg PO HS 10/21/17 [History] Sotalol [Betapace] 80 mg PO Q12HR 10/21/17 [History] hydroCHLOROthiazide [Hydrochlorothiazide] 6.25 mg PO DAILY 10/21/17 [History] 3 Allergy/AdvReac Type Severity Reaction Status Date / Time Point Place Allergy Mild See Verified 10/21/17 20:20 Comments lisinopril Allergy See Verified 10/21/17 20:20 Comments - Constitutional Constitutional: no chills, no fever(s), no falls, no night sweats - EENT Eyes: no blurry vision, no change in vision, no diplopia Ears: no ear pain, no tinnitus Nose, mouth and throat: no change in voice, no dysphagia, no nasal congestion, no nasal discharge, no sinus pressure, no sore throat - Cardiovascular Cardiovascular ROS IM: no chest pain, no dyspnea, no dyspnea on exertion, no edema, no lightheadedness, no palpitations, no paroxysmal nocturnal dyspnea, no syncope - Respiratory Respiratory: no cough, no hemoptysis, no chest congestion, no excessive phlegm production, no change in phlegm color - Gastrointestinal Gastrointestinal: no abdominal pain, no diarrhea, no hematemesis, no hematochezia, no melena, no nausea, no vomiting - Genitourinary Genitourinary ROS male: no dysuria, no flank pain, no hematuria - Musculoskeletal Musculoskeletal ROS IM: no arthralgias, no back pain - Integumentary Integumentary IM: no rash, no jaundice - Neurological Neurological ROS: confusion (resolved by the time I assessed him), no abnormal hearing, no disequilibrium, no dizziness, no focal weakness, no frequent falls, no headache(s) - Psychiatric Psychiatric: no anxiety, no depression, no hallucinations - Endocrine Endocrine IM: no polydipsia, no polyuria - Hematologic/Lymphatic Hematologic/Lymphatic: easy bruising, no lymphadenopathy - Allergic/Immunologic Allergic/Immunologic: no wheezing, no GI upset with certain foods - Constitutional Vitals: Temp Pulse Resp BP Pulse Ox 98.5 F 87 18 200/109 97 10/21/17 18:31 10/21/17 18:31 10/21/17 18:31 10/21/17 18:31 10/21/17 18:31 General appearance: Present: cooperative, A&O X 3, pleasant, no acute distress, answers questions appropriately (slowly but appropriately) - Head Head exam: Present: atraumatic, normal inspection - Eye Eye exam: Present: EOMI, normal appearance, PERRL. Absent: scleral icterus Pupils: Present: normal accommodation - ENT ENT exam: Present: mucous membranes dry, normal exam, normal oropharynx Additional comments: edentulous - Neck Neck exam general surgery: Present: full ROM, supple. Absent: lymphadenopathy, tenderness, nuchal rigidity - Respiratory Respiratory exam: Present: CTAB. Absent: chest wall tenderness, rales, respiratory distress, rhonchi, wheezes - Cardiovascular Cardiovascular exam: Present: RRR, +S1, +S2. Absent: diastolic murmur, systolic murmur - GI/Abdominal GI/Abdominal exam: Present: normal bowel sounds, soft. Absent: guarding, hepatomegaly, mass, splenomegaly, tenderness - Extremities Exam Extremities exam: Present: full ROM, normal capillary refill, warm, radial pulses palpable and symmetrical. Absent: calf tenderness, joint swelling, pedal edema, tenderness - Back Exam Back exam: Absent: CVA tenderness (L), CVA tenderness (R) - Neurological Exam Neurological exam: Present: alert, CN II-XII intact, oriented X3, no focal deficits, strengths equal and symetr throughout - Psychiatric Psychiatric exam: Present: flat affect. Absent: homicidal ideation, suicidal ideation - Skin Skin exam: Present: dry, warm. Absent: rash Internal Med - H&P Results - Labs CBC & Chem 7: 10/21/17 18:46 10/21/17 18:46 - EKG Data -: EKG Interpreted by Myself EKG shows normal: sinus rhythm - EKG Data Prior EKG available for review: no EKG comments: 10/21/17 20:52 NSR; no acute ST changes - Diagnostic Studies Chest x-ray Status: image reviewed by me (negative) CT scan - head Additional comments: Report reviewed -- acute vs subacute stroke in left clau noted
[2017-10-22] MEDS: Magnesium Oxide 400 MG TABLET PO SCH ×3 (00:08→22:16)
[2017-10-22] MEDS: *HR* Heparin 5,000 UNIT/ML VIAL SQ SCH ×2 (00:08→06:49)
[2017-10-22] MEDS: OLANZapine 10 MG TAB.RAPDIS PO SCH ×2 (00:09→22:15)
[2017-10-22 01:05] LABS: Basophils % 0.8 %; Eosinophils # 0.1 K/mcL (0.0-0.6); Hematocrit 38.3 % (37.5-50.1); Hemoglobin 11.9 g/dL (12.9-16.9); Immature Granulocytes % 0.2 % (0-4); Lymphocytes # 1.7 K/mcL (0.6-4.6); Lymphocytes % 32.7 %; Mean Corpuscular HGB Conc 31.1 g/dL (31.6-35.5); Mean Corpuscular Hemoglobin 26.6 pg (28.0-33.3); Mean Corpuscular Volume 85.5 fL (83.0-100.0); Mean Platelet Volume 9.5 fL (9.4-12.4); Monocytes # 0.3 K/mcL (0.0-1.3); Monocytes % 6.3 %; Neutrophils # 3.1 K/mcL (1.6-8.9); Platelet Count 281 K/mcL (140-400); Red Blood Count 4.48 M/mcL (4.19-5.50); Red Cell Distribution Width 14.5 % (11.5-14.5)
[2017-10-22 01:09] LABS: INR 1.1; Prothrombin Time 12.2 Seconds (9.4-12.1)
[2017-10-22 01:12] LABS: Activated Partial Thrombo Time 30.7 Seconds (26.0-36.0)
[2017-10-22 01:25] LABS: Alanine Aminotransferase 10 Units/L (7-52); Albumin 4.4 g/dL (3.5-5.7); Albumin/Globulin Ratio 1.8 (1.1-2.2); Alkaline Phosphatase 78 Units/L (34-104); Aspartate Amino Transferase 14 Units/L (13-39); BUN/Creatinine Ratio 13 (6-26); Bilirubin,Total 0.5 mg/dL (0.3-1.0); Blood Urea Nitrogen 13 mg/dL (8-23); Calcium 10.1 mg/dL (8.6-10.3); Carbon Dioxide 27 mEq/L (23-29); Chloride 104 mEq/L (98-107); Chol/HDL Ratio 3.3 (0-4.9); Cholesterol 113 mg/dL (< 200); Globulin 2.4 g/dL (2.4-3.5); Glucose 104 mg/dL (70-105); HDL Cholesterol 34 mg/dL (40-59); LDL Cholesterol,Calculated 65 mg/dL (0-99); Osmolality,Calculated 288 (280-300); Potassium 3.7 mEq/L (3.5-5.1); Sodium 139 mEq/L (136-145); Total Protein 6.8 g/dL (6.4-8.9); Triglycerides 69 mg/dL (< 150); eGFR For African Americans > 60 (> 60); eGFR For Non-African Americans > 60 (> 60)
[2017-10-22] MEDS: Aspirin 81 MG TAB.CHEW PO SCH (10:09)
[2017-10-22] MEDS: OLANZapine 5 MG TAB.RAPDIS PO SCH (10:09)
[2017-10-22] MEDS: Insulin LISPRO 300 UNITS/3 ML VIAL SQ SCH ×3 (10:10→17:33)
--- NOTE | 2017-10-22 10:29 | Internal Med Progress Note ---
<Tera Patel - Last Filed: 10/22/17 10:26> Date of Encounter: 10/22/17 Time of Encounter: 10:26 - Assessment and plan (1) Cerebrovascular accident Current Visit: Yes Status: Acute Assessment and plan: CT scan showed concern for possible CVA MRI has been ordered and showed possible evidence of normal pressure hydrocephalus Echo and carotid Dopplers have been ordered Neurology has been consult Qualifiers: CVA mechanism: unspecified Qualified Code(s): I63.9 - Cerebral infarction, unspecified (2) Diabetes mellitus Current Visit: Yes Status: Chronic Assessment and plan: Continue sliding scale insulin while the patient was hospitalized Continue to monitor patient's glucose. Qualifiers: Diabetes mellitus type: type 2 Diabetes mellitus ad terminal makeup operator insulin use: without prison use Diabetes mellitus complication status: without complication Qualified Code(s): E11.9 - Type 2 diabetes mellitus without complications (3) HTN (hypertension) Current Visit: Yes Status: Chronic Assessment and plan: Patient has an elevated blood pressure in the 160s Continue current medical management of hydralazine prn for systolic blood pressure greater than 180 Qualifiers: Hypertension type: essential hypertension Qualified Code(s): I10 - Essential (primary) hypertension (4) DVT prophylaxis Current Visit: No Status: Acute Assessment and plan: Heparin 5000 units subcutaneous every 8 hours for DVT prophylaxis. - Subjective Interval history: Patient states that he is doing well at this time. He has no complaints. States that his speech is normal for him due to not having any teeth. Patient denies any weakness or inability to ambulate. - Constitutional Vitals: Temp Pulse Resp BP Pulse Ox 97.5 F L 58 16 162/95 98 10/22/17 07:03 10/22/17 07:03 10/22/17 07:03 10/22/17 07:03 10/22/17 07:03 General appearance: Present: cooperative, A&O X 3, pleasant, no acute distress, answers questions appropriately (slowly but appropriately) - Head Head exam: Present: atraumatic, normocephalic - Neck Neck exam general surgery: Present: full ROM, normal inspection, trachea midline - Respiratory Respiratory exam: Present: CTAB. Absent: accessory muscle use, rales, rhonchi, wheezes - Cardiovascular Cardiovascular exam: Present: RRR, +S1, +S2. Absent: diastolic murmur, gallop, rubs, systolic murmur - GI/Abdominal GI/Abdominal exam: Present: normal bowel sounds, soft, no peritoneal signs. Absent: distended, tenderness - Extremities Exam Extremities exam: Present: warm. Absent: pedal edema, tenderness - Neurological Exam Neurological exam: Present: alert, CN II-XII intact, oriented X3, no focal deficits, strengths equal and symetr throughout. Absent: motor sensory deficit , pronater drift, facial droop, speech deficit - Psychiatric Psychiatric exam: Present: normal affect, normal mood - Skin Skin exam: Present: dry, intact, warm Internal Medicine: Result - Labs CBC & Chem 7: 10/22/17 00:38 10/22/17 00:38 Labs: Short CBC 10/22/17 Range/Units 00:38 WBC 5.2 (4.3-11.1) K/mcL Hgb 11.9 L (12.9-16.9) g/dL Hct 38.3 (37.5-50.1) % Plt Count 281 (140-400) K/mcL Neutrophils # 3.1 (1.6-8.9) K/mcL BMP 10/22/17 00:38 Sodium 139 Potassium 3.7 Chloride 104 Carbon Dioxide 27 BUN 13 Creatinine 1.02 Glucose 104 Calcium 10.1 Liver Function 10/22/17 Range/Units 00:38 Total Bilirubin 0.5 (0.3-1.0) mg/dL AST 14 (13-39) Units/L ALT 10 (7-52) Units/L Alkaline Phosphatase 78 (34-104) Units/L Albumin 4.4 (3.5-5.7) g/dL - ABG Interpretation ABG results: PT/INR, D-dimer PT 12.2 Seconds (9.4-12.1) H 10/22/17 00:38 Consult Discharge Plan - Plan [facility]errals: [facility]Primary Care Provider[facility] - <Galindo Walker - Last Filed: 10/22/17 11:51> Date of Encounter: 10/22/17 - Assessment and plan (1) Cerebrovascular accident Current Visit: Yes Status: Suspected Qualifiers: CVA mechanism: thrombosis Precerebral and cerebral artery: middle cerebral artery Laterality of affected vessel: left Qualified Code(s): I63.312 - Cerebral infarction due to thrombosis of left middle cerebral artery (2) HTN (hypertension) Current Visit: Yes Status: Chronic Qualifiers: Hypertension type: essential hypertension Qualified Code(s): I10 - Essential (primary) hypertension (3) Diabetes mellitus Current Visit: Yes Status: Chronic Qualifiers: Diabetes mellitus type: type 2 Diabetes mellitus prison insulin use: without prison use Diabetes mellitus complication status: without complication Qualified Code(s): E11.9 - Type 2 diabetes mellitus without complications (4) Atrial fibrillation Current Visit: No Status: Chronic Assessment and plan: Pt was discharged on Eliquis last visit. Will restart. Qualifiers: Atrial fibrillation type: paroxysmal Qualified Code(s): I48.0 - Paroxysmal atrial fibrillation - Constitutional Vitals: Temp Pulse Resp BP Pulse Ox 97.5 F L 58 16 162/95 98 10/22/17 07:03 10/22/17 07:03 10/22/17 07:03 10/22/17 07:03 10/22/17 07:03 Internal Medicine: Result - Labs CBC & Chem 7: 10/22/17 00:38 10/22/17 00:38 Labs: Short CBC 10/22/17 Range/Units 00:38 WBC 5.2 (4.3-11.1) K/mcL Hgb 11.9 L (12.9-16.9) g/dL Hct 38.3 (37.5-50.1) % Plt Count 281 (140-400) K/mcL Neutrophils # 3.1 (1.6-8.9) K/mcL BMP 10/22/17 00:38 Sodium 139 Potassium 3.7 Chloride 104 Carbon Dioxide 27 BUN 13 Creatinine 1.02 Glucose 104 Calcium 10.1 Liver Function 10/22/17 Range/Units 00:38 Total Bilirubin 0.5 (0.3-1.0) mg/dL AST 14 (13-39) Units/L ALT 10 (7-52) Units/L Alkaline Phosphatase 78 (34-104) Units/L Albumin 4.4 (3.5-5.7) g/dL - ABG Interpretation ABG results: PT/INR, D-dimer PT 12.2 Seconds (9.4-12.1) H 10/22/17 00:38 - Attending Attestation I examined this patient and my medical decision-making was reviewed with the Resident Physician on 10/22/17. I agree with the documented findings, disposition and treatment plan as described except to the extent set forth below. Mr Torres is currently admitted for acute CVA. He remains moderate to high risk due to potential for worsening clinical status. Mr Torres says he feels OK at this time. No CP or SOB. He feels his speech is at baseline. No fever. Tolerating current treatment. Exam alert Comfortable Mucus membranes dry Heart reg Lungs diminished Abd soft I/P 1. CVA - CT positive but not seen on MRI per result. Neuro to see today. Echo and carotids pending. 2. HTN 3. DM Further diagnoses and plan as above.
[2017-10-22] MEDS: Apixaban 5 MG TABLET PO SCH ×2 (13:09→22:16)
--- NOTE | 2017-10-22 14:34 | Neurology - Consult Note ---
Date of Encounter: 10/22/17 Time of Encounter: 14:24 Assessment and Plan (1) Mental status change Current Visit: Yes Status: Acute I believe that this gentleman is mental status change was likely due to some transient effect perhaps of his medication regimen, or perhaps secondary to hypertensive encephalopathy. Upon initial admission his blood pressure was 200/ 109. I am not convinced at this time that the MRI pensive picture of normal pressure hydrocephalus. However certainly this could be better evaluated as an outpatient. At this point he seems to be back at his normal baseline. I find no evidence of acute cerebral infarct, his metabolic panel was essentially negative. No evidence to suspect seizure activity. I will reevaluate him at your request. Qualifiers: Qualified Code(s): R41.82 - Altered mental status, unspecified History of Present Illness HPI: Mr. Torres is a 71 year old homeless male with a history of schizophrenia who is currently being seen for neurologic consultation secondary to mental status change. It was noticed yesterday that apparently there was a change in his level of consciousness and speech pattern. I also felt that there was some left-sided weakness. Currently he seems back to his baseline status. He denies any headache, he follows simple commands and answers questions appropriately. He is slightly bradyphrenic. Upon presentation his blood pressure was quite elevated at 200/109. MRI scan of the brain was completed. In my opinion there is a significant amount of cortical atrophy and I feel that the ventricular dilatation is compensatory and commensurate with the element of cortical atrophy. There is no evidence of acute infarct present. The laboratory analysis is fairly benign, urinalysis was negative. Toxicology screen was negative for ethanol. He denies headache confusion or any visual changes. Past Med Surg Social Fam HX - Past Medical History Medical history: diabetes, hypertension, TIA Psychiatric history: schizophrenia - Past Surgical History Surgical History: herniorrhaphy - Social History Smoking Status: Never smoker Smokeless Tobacco Status: No Alcohol use: none Drug use: none - Family History Mother History Unknown: Yes Living Status: Age at : 80 Cause of : natural causes Father History Unknown: Yes Living Status: Age at : 50 Cause of : unsure Medications and Allergies Acetaminophen [Tylenol] 650 mg PO QID PRN 08/27/15 [History] Amlodipine [Amlodipine Besylate] 10 mg PO DAILY 08/27/15 [History] Aspirin [Adult Low Dose Aspirin EC] 81 mg PO DAILY 08/27/15 [History] Atorvastatin [Lipitor] 40 mg PO HS 08/27/15 [History] Cholecalciferol (Vitamin D3) [Vitamin D3] 1,000 unit PO DAILY 08/27/15 [History] Docusate [Colace] 100 mg PO BID 08/27/15 [History] Magnesium Oxide [Magnesium] 400 mg PO BID 08/27/15 [History] Sertraline [Zoloft] 100 mg PO DAILY 08/27/15 [History] metFORMIN [Glucophage] 500 mg PO BIDWM 08/27/15 [History] Apixaban [Eliquis] 5 mg PO BID #60 tablet 10/04/17 [Rx] Ammonium Lactate [Lac-Hydrin Five] 1 appl TP DAILY 10/21/17 [History] Benztropine [Cogentin] 1 mg PO BID 10/21/17 [History] Losartan [Cozaar] 12.5 mg PO QPM 10/21/17 [History] Memantine HCl 10 mg PO BID 10/21/17 [History] OLANZapine [Zyprexa] 5 mg PO QAM 10/21/17 [History] OLANZapine [Zyprexa] 25 mg PO HS 10/21/17 [History] Sotalol [Betapace] 80 mg PO Q12HR 10/21/17 [History] hydroCHLOROthiazide [Hydrochlorothiazide] 6.25 mg PO DAILY 10/21/17 [History] 3 Allergy/AdvReac Type Severity Reaction Status Date / Time [place] Allergy Mild See Verified 10/21/17 20:20 Comments lisinopril Allergy See Verified 10/21/17 20:20 Comments All Systems: The remainder of the systems were reviewed and are negative Review of Systems: 10 point review of systems is consistent with the history of present illness and otherwise negative. Physical Examination - Vital Signs Vital Signs: Initial Vital Signs Temp Pulse Resp BP Pulse Ox 98.5 F 87 18 200/109 97 10/21/17 18:31 10/21/17 18:31 10/21/17 18:31 10/21/17 18:31 10/21/17 18:31 - Constitutional General appearance: other (Disheveled) - Neurologic Sensorimotor examination: intact Detailed motor examination: grossly full strength in all extremities Detailed sensory examination: intact Reflexes: Biceps: 2+, Triceps: 2+, Brachioradialis: 2+, Patella: 1+, Achilles: 1 + Mental Status Examination: awake, alert, oriented to person, oriented to place, oriented to time, follows commands appropriately, answers questions appropriately, no agnosia, no aphasia, no aproxia Cranial nerve examination: PERRL, EOMI, corneal reflexes brisk symmetrically, sensory to face intact, mastication intact, no facial asymmetry is present, no dysarthria, hearing is intact symmetrically, soft palate elevates bilaterally upon phonation, tongue protrudes midline Cerebellar examination: no dysmetria, no truncal ataxia, dysarthria (Patient is edentulous) Results - Laboratory Findings CBC and BMP: 10/22/17 00:38 10/22/17 00:38 Abnormal lab findings: Abnormal lab results Hgb 11.9 g/dL (12.9-16.9) L 10/22/17 00:38 MCH 26.6 pg (28.0-33.3) L 10/22/17 00:38 MCHC 31.1 g/dL (31.6-35.5) L 10/22/17 00:38 PT 12.2 Seconds (9.4-12.1) H 10/22/17 00:38 HDL Cholesterol 34 mg/dL (40-59) L 10/22/17 00:38 Ur Specific [place] < 1.005 (1.010-1.025) L 10/21/17 19:50 Consult Discharge Plan - Plan [facility]errals: [facility] [Primary Care Provider] -
[2017-10-23 06:12] LABS: Basophils % 0.6 %; Eosinophils # 0.1 K/mcL (0.0-0.6); Eosinophils % 2.5 %; Hematocrit 32.4 % (37.5-50.1); Immature Granulocytes % 0.3 % (0-4); Lymphocytes # 1.7 K/mcL (0.6-4.6); Lymphocytes % 46.3 %; Mean Corpuscular HGB Conc 30.9 g/dL (31.6-35.5); Mean Corpuscular Hemoglobin 26.6 pg (28.0-33.3); Mean Corpuscular Volume 86.2 fL (83.0-100.0); Monocytes # 0.3 K/mcL (0.0-1.3); Monocytes % 8.7 %; Neutrophils # 1.5 K/mcL (1.6-8.9); Platelet Count 233 K/mcL (140-400); Red Blood Count 3.76 M/mcL (4.19-5.50); Red Cell Distribution Width 14.6 % (11.5-14.5); Segmented Neutrophils % 41.6 %
--- NOTE | 2017-10-23 09:10 | Discharge Summary ---
<Tera Patel - Last Filed: 10/23/17 09:07> - NOTES TO OUTPATIENT PROVIDER Notes to Outpatient Provider: Patient was admitted to the hospital for concern for possible CVA. Patient been followed by neurology and does not feel that this is a CVA. The patient has progressed back to his baseline has no residual deficits. There was concern for possible normal pressure hydrocephalus on MRI scan. Neurology was not convinced that this was normal pressure hydrocephalus and felt that this could be evaluated by outpatient basis. He will be discharged home with recommendation follow up with neurology as an outpatient. Orders not resulted at time of discharge: Pending orders 10/21/17 20:39 Hgb A1C Routine 10/22/17 12:53 EKG [ECG 12 lead ECG] [ECG] Stat Date of Encounter: 10/23/17 Time of Encounter: 09:08 - Discharge Diagnosis (1) Cerebrovascular accident Priority: Primary Status: Suspected Qualifiers: CVA mechanism: thrombosis Precerebral and cerebral artery: middle cerebral artery Laterality of affected vessel: left Qualified Code(s): I63.312 - Cerebral infarction due to thrombosis of left middle cerebral artery (2) Diabetes mellitus Priority: Secondary Status: Chronic Qualifiers: Diabetes mellitus type: type 2 Diabetes mellitus fpc insulin use: without long term care administrator use Diabetes mellitus complication status: without complication Qualified Code(s): E11.9 - Type 2 diabetes mellitus without complications (3) HTN (hypertension) Priority: Primary Status: Chronic Qualifiers: Hypertension type: essential hypertension Qualified Code(s): I10 - Essential (primary) hypertension (4) DVT prophylaxis Priority: Primary Status: Acute Hospital course: Mr. Torres is a 71 year old male that presented to the emergency department and was admitted to the hospital for concern for possible CVA. Patient's had complete resolution of any symptoms. He does state that he has some slurred speech however that this is due to him not having any teeth and this is nothing new for him. This is been reiterated throughout his hospital stay. CT scan did show concern for possible lesion to the clau. This was followed up with an MRI which showed no acute process but possible concern for hydrocephalus. Neurology was consult and and follow this patient and did not feel that this was a CVA and question whether or not this was normal pressure hydrocephalus. There recommended that this be better followed as an outpatient. The patient is back to his baseline. The patient is stable and appropriate for discharge and will be discharged home with recommendation to follow-up with his primary care provider as well as neurology. Discharge discussed with: patient - Time Spent with Patient Total time spent providing and/or coordinating discharge services: Greater than 30 minutes (35) - Discharge Medications Home Medications: Acetaminophen [Tylenol] 650 mg PO QID PRN 08/27/15 [History] Amlodipine [Amlodipine Besylate] 10 mg PO DAILY 08/27/15 [History] Aspirin [Adult Low Dose Aspirin EC] 81 mg PO DAILY 08/27/15 [History] Atorvastatin [Lipitor] 40 mg PO HS 08/27/15 [History] Cholecalciferol (Vitamin D3) [Vitamin D3] 1,000 unit PO DAILY 08/27/15 [History] Docusate [Colace] 100 mg PO BID 08/27/15 [History] Magnesium Oxide [Magnesium] 400 mg PO BID 08/27/15 [History] Sertraline [Zoloft] 100 mg PO DAILY 08/27/15 [History] metFORMIN [Glucophage] 500 mg PO BIDWM 08/27/15 [History] Apixaban [Eliquis] 5 mg PO BID #60 tablet 10/04/17 [Rx] Ammonium Lactate [Lac-Hydrin Five] 1 appl TP DAILY 10/21/17 [History] Benztropine [Cogentin] 1 mg PO BID 10/21/17 [History] Losartan [Cozaar] 12.5 mg PO QPM 10/21/17 [History] Memantine HCl 10 mg PO BID 10/21/17 [History] OLANZapine [Zyprexa] 5 mg PO QAM 10/21/17 [History] OLANZapine [Zyprexa] 25 mg PO HS 10/21/17 [History] Sotalol [Betapace] 80 mg PO Q12HR 10/21/17 [History] hydroCHLOROthiazide [Hydrochlorothiazide] 6.25 mg PO DAILY 10/21/17 [History] Allergies/Adverse Reactions: 3 Allergy/AdvReac Type Severity Reaction Status Date / Time [place] Allergy Mild See Verified 10/21/17 20:20 Comments lisinopril Allergy See Verified 10/21/17 20:20 Comments Date of admission: 10/21/17 20:32 [facility] care physician: [facility] Consults: 10/21/17 20:42 Consult to Neurology [CONS] Routine Consulting Provider: [facility] Reason for Consult: stroke Call Completed: Yes Discharging clinician: Tera Patel Anticipated date of discharge: 10/23/17 - Constitutional Vitals: Temp Pulse Resp BP Pulse Ox 97.8 F 52 16 131/78 98 10/23/17 07:12 10/23/17 07:12 10/23/17 07:12 10/23/17 07:12 10/23/17 07:12 General appearance: Present: cooperative, A&O X 3, pleasant, no acute distress, answers questions appropriately (slowly but appropriately) - Head Head exam: Present: atraumatic, normocephalic - Neck Neck exam general surgery: Present: full ROM, normal inspection, trachea midline - Respiratory Respiratory exam: Present: CTAB. Absent: accessory muscle use, rales, rhonchi, wheezes - Cardiovascular Cardiovascular exam: Present: RRR, +S1, +S2. Absent: diastolic murmur, gallop, rubs, systolic murmur - GI/Abdominal GI/Abdominal exam: Present: normal bowel sounds, soft, no peritoneal signs. Absent: distended, tenderness - Extremities Exam Extremities exam: Present: warm. Absent: pedal edema, tenderness - Neurological Exam Neurological exam: Present: alert, CN II-XII intact, oriented X3, no focal deficits, strengths equal and symetr throughout. Absent: motor sensory deficit , pronater drift, facial droop, speech deficit - Psychiatric Psychiatric exam: Present: normal affect, normal mood - Skin Skin exam: Present: dry, intact, warm - Patient Status Disposition: Home, Self-Care Condition: Good Overall status at discharge: patient is back to baseline - Discharge Instructions Instructions: Atrial Fibrillation (DC), Chronic Hypertension (DC), Hydrocephalus (DC), Fall Prevention (DC) Follow Up With: [facility] [Provider Group] (please call to make appointment ) [facility]Primary Care Provider[facility] - Kadeem Garcia DO [Partnered Physician] - Forms: ED Satisfaction Letter Additional Instructions: Please follow up with her primary care provider at the next available appointment. Please follow up with neurology I provide you with your information Please take all your medications as prescribed. Please contact your primary care provider or return to the emergency department if any worsening of your symptoms or any concern about your health. Follow up with cardiology. - Diet and Activity Activity: increase activity as tolerated Diet: advance to your usual diet <Galindo Walker - Last Filed: 10/23/17 18:18> Orders not resulted at time of discharge: Pending orders 10/22/17 12:53 EKG [ECG 12 lead ECG] [ECG] Stat Date of Encounter: 10/23/17 - Discharge Diagnosis (1) Cerebrovascular accident Status: Ruled-out Qualifiers: CVA mechanism: thrombosis Precerebral and cerebral artery: middle cerebral artery Laterality of affected vessel: left Qualified Code(s): I63.312 - Cerebral infarction due to thrombosis of left middle cerebral artery (2) HTN (hypertension) Status: Chronic Qualifiers: Hypertension type: essential hypertension Qualified Code(s): I10 - Essential (primary) hypertension (3) Diabetes mellitus Status: Chronic Qualifiers: Diabetes mellitus type: type 2 Diabetes mellitus fpc insulin use: without fpc use Diabetes mellitus complication status: without complication Qualified Code(s): E11.9 - Type 2 diabetes mellitus without complications (4) Atrial fibrillation Priority: Secondary Status: Chronic Qualifiers: Atrial fibrillation type: paroxysmal Qualified Code(s): I48.0 - Paroxysmal atrial fibrillation Hospital course: Mr. Torres is a 71 year old male - Time Spent with Patient Total time spent providing and/or coordinating discharge services: Date of admission: 10/21/17 20:32 Primary care physician: [facility] Consults: 10/21/17 20:42 Consult to Neurology [CONS] Routine Consulting Provider: [facility] Reason for Consult: stroke Call Completed: Yes 10/23/17 13:10 Consult to Supervisor Packing [CONS] Routine Reason for SW Consult: patient from custodial - Constitutional Vitals: Temp Pulse Resp BP Pulse Ox 97.7 F 58 18 147/93 96 10/23/17 11:34 10/23/17 11:34 10/23/17 11:34 10/23/17 11:34 10/23/17 11:34 - Attending Attestation I examined this patient and my medical decision-making was reviewed with the Resident Physician on 10/23/17. I agree with the documented findings, disposition and treatment plan as described except to the extent set forth below. Mr. Torres has been admitted for possible CVA. This has been ruled out. He is at baseline and is ready for discharge. Exam Alert. Comfortable Mucus membranes dry Heart reg Lungs clear Plan D/C today.
[2017-10-23 09:38] LABS: Estimated Average Glucose 128 mg/dl; Hemoglobin A1C 6.1 %
[2017-10-23] MEDS: Aspirin 81 MG TAB.CHEW PO SCH (10:35)
[2017-10-23] MEDS: Magnesium Oxide 400 MG TABLET PO SCH (10:36)
[2017-10-23] MEDS: OLANZapine 5 MG TAB.RAPDIS PO SCH (10:36)
[2017-10-23] MEDS: Apixaban 5 MG TABLET PO SCH (10:36)
[2017-10-23] MEDS: Insulin LISPRO 300 UNITS/3 ML VIAL SQ SCH ×2 (10:38→11:53)
[2017-10-23 11:34] VITALS: BP 147/93
--- NOTE | 2017-10-24 18:42 | Electrocardiograph Report ---
[address] [place] [address] Test Date: 2017-10-21 Pat Name: Lam Torres Department: 103 Room: 2N7 Gender: M Gravel Wheeler: ANYA : 1945 Requested By: Forrest Munoz Order Number: [id number] Reading MD: Jeffrey Mijares MD Measurements Intervals [place] Rate: 64 P: 30 HI: 160 QRS: -41 QRSD: 123 T: 60 QT: 439 QTc: 448 Interpretive Statements SINUS RHYTHM MARKED LEFT AXIS DEVIATION VOLTAGE CRITERIA FOR LVH BASELINE ARTIFACT Electronically Signed On 10-24-2017 18:40:59 EDT by Jeffrey Mijares MD
--- NOTE | 2017-10-24 19:33 | Electrocardiograph Report ---
[address] [place] [address] Test Date: 2017-10-22 Pat Name: Lam Torres Department: 111 Room: 2NE17 Gender: Print Developer: [id number] : 1945 Requested By: Castillo Martinez Order Number: [id number] Reading MD: Jeffrey Mijares MD Measurements Intervals [place] Rate: 64 P: 25 ND: 181 QRS: -42 QRSD: 121 T: 4 QT: 432 QTc: 441 Interpretive Statements SINUS RHYTHM MARKED LEFT AXIS DEVIATION VOLTAGE CRITERIA FOR LVH PROBABLE LATERAL MYOCARDIAL INFARCTION, OF INDETERMINATE AGE Poor R wave progression Electronically Signed On 10-24-2017 19:31:54 EDT by Jeffrey Mijares MD
--- NOTE | 2017-10-26 16:34 | Electrocardiograph Report ---
[address] [place] [address] Test Date: 2017-10-25 Pat Name: Lam Torres Department: 104 Room: 2NE17 Gender: M Senior Financial Accountant: CELESTINO : 1945 Requested By: Galidno Walker Order Number: [id number] Reading MD: Kadeem Garcia DO Measurements Intervals [place] Rate: 66 P: 35 SD: 166 QRS: -37 QRSD: 121 T: 67 QT: 441 QTc: 455 Interpretive Statements SINUS RHYTHM WITH OCCASIONAL SUPRAVENTRICULAR PREMATURE COMPLEXES MARKED LEFT AXIS DEVIATION VOLTAGE CRITERIA FOR LVH POSSIBLE SEPTAL MYOCARDIAL INFARCTION, OF INDETERMINATE AGE PROBABLE LATERAL MYOCARDIAL INFARCTION, OF INDETERMINATE AGE Electronically Signed On 10-26-2017 16:32:32 EDT by Kadeem Garcia DO
== END 2017-10-23 16:58 | disposition home or self-care (01) | DRG 92 ==
LOC: 2NENU 18:17 → EMEROO 18:17 → SUATTDRO 20:32 → 2NENU 21:30
PROVIDERS: ADMIT Internal Medicine; ATTEND Internal Medicine

== ENCOUNTER 2018-02-21 14:49 | Observation (INO) ==
[2018-02-21] MEDS ORDERED: 0.9 % Sodium Chloride 1,000 ML IVC ONE (15:10)
--- NOTE | 2018-02-21 15:18 | Emergency Department Note ---
Disposition Clinical Impression: Near syncope, ROYAL (acute kidney injury), Ketonuria Disposition: Admitted As Inpatient Condition: Fair [facility] Care Provider[facility] - Forms: ED Satisfaction Letter Time of Disposition: 17:40 Weakness HPI - General Chief complaint: ED Weakness Stated complaint: Weakness Time Seen by Provider: 02/21/18 15:04 Source: patient, EMS Mode of arrival: EMS Limitations: altered mental status Nursing Notes Reviewed: Yes Vital Signs Reviewed: Yes - History of Present Illness HPI Narrative: Patient presents to the ED via EMS with a chief complaint of weakness. Patient arrived prior to my arrival and EMS had already left. According to the nursing note patient came from a assisted for dementia and has been having generalized weakness all day and has been more difficult to arouse. Patient does have a history of dementia and states that he woke up today and felt weak all over. Is also complaining of some shortness of breath, which is unusual for him. He is on oxygen but states that he is not on oxygen normally. He denies any headache, changes in vision, neck pain, chest pain, discomfort or heaviness, abdominal pain, nausea, vomiting, diarrhea. Pain Scale: 0 - Related Data Home Medications Medication Instructions Recorded Confirmed Acetaminophen [Tylenol] 650 mg PO QID PRN 08/27/15 02/21/18 Amlodipine [Amlodipine Besylate] 10 mg PO DAILY 08/27/15 02/21/18 Aspirin [Adult Low Dose Aspirin EC] 81 mg PO DAILY 08/27/15 02/21/18 Atorvastatin [Lipitor] 40 mg PO HS 08/27/15 02/21/18 Cholecalciferol (Vitamin D3) 1,000 unit PO DAILY 08/27/15 02/21/18 [Vitamin D3] Docusate [Colace] 100 mg PO BID 08/27/15 02/21/18 Magnesium Oxide [Magnesium] 400 mg PO BID 08/27/15 02/21/18 Sertraline [Zoloft] 100 mg PO DAILY 08/27/15 02/21/18 metFORMIN [Glucophage] 500 mg PO BIDWM 08/27/15 02/21/18 Ammonium Lactate [Lac-Hydrin Five] 1 appl TP DAILY 10/21/17 02/21/18 Benztropine [Cogentin] 1 mg PO BID 10/21/17 02/21/18 Losartan [Cozaar] 12.5 mg PO QPM 10/21/17 02/21/18 Memantine HCl 10 mg PO BID 10/21/17 02/21/18 OLANZapine [Zyprexa] 5 mg PO QAM 10/21/17 02/21/18 OLANZapine [Zyprexa] 25 mg PO HS 10/21/17 02/21/18 Sotalol [Betapace] 80 mg PO Q12HR 10/21/17 02/21/18 hydroCHLOROthiazide 6.25 mg PO DAILY 10/21/17 02/21/18 [Hydrochlorothiazide] Sennosides [Senokot] 8.6 mg PO DAILY 02/21/18 02/21/18 Previous Rx's Medication Instructions Recorded Apixaban [Eliquis] 5 mg PO BID #60 tablet 10/04/17 Allergies Allergy/AdvReac Type Severity Reaction Status Date / Time [place] Allergy Mild See Verified 02/21/18 16:11 Comments lisinopril Allergy See Verified 02/21/18 16:11 Comments Review of Systems: As reviewed in the HPI. All other systems reviewed are negative or normal. Past Medical History - Past Medical History Attestation: Yes The following information was validated with the patient. Source: patient, old records reviewed Medical history: Reports: dementia, diabetes, hyperlipidemia, hypertension, TIA , other Surgical history: Reports: herniorrhaphy Psychiatric history: Reports: anxiety, depression, PTSD, schizophrenia - Social History Smoking Status: Never smoker Smokeless Tobacco Status: No Alcohol use: Reports: none Drug use: Reports: none Physical Exam - General Limitations: no limitations General appearance: alert, other (Slow to respond, but otherwise alert) - Head Head exam: atraumatic, normocephalic, normal inspection - Eye Eye exam: Present: normal appearance, PERRL, EOMI - ENT ENT exam: normal exam, normal oropharynx, mucous membranes moist - Neck Neck exam: Present: normal inspection, full ROM, trachea midline - Chest Chest inspection: Present: normal inspection, symmetric chest wall rise - Respiratory Respiratory exam: Present: normal lung sounds bilaterally, other (100% on room air when taken off O2) - Cardiovascular Cardiovascular exam: Present: regular rate, normal rhythm, normal heart sounds - Abdominal Exam Abdominal exam: Present: soft, Non-Tender. Absent: tenderness, distention, guarding, rebound, rigidity - Extremities Exam Extremities exam: Present: normal inspection, full ROM. Absent: tenderness, pedal edema - Neurological Exam Neurological exam: Present: alert, oriented X3 (Loosely oriented to time, and suspecting baseline due to his dementia), CN II-XII intact (Grossly, patient does have some slurred speech but previous records indicate that this is chronic ) - Psychiatric Psychiatric exam: Present: normal affect, normal mood - Skin Skin exam: Present: warm, dry, intact, normal color Course Course Narrative: We spoke with [facility] where the patient came from. Apparently , he got up to go to the lunchroom and became very weak and lightheaded and almost passed out. They checked his blood pressure and his systolic pressure was 90. States that he gave him some fluids and he was feeling a little better. However , this happened 2 more times. So essentially, patient is sent here for near syncope. His workup looks okay however, we will admit him to the hospitalist service for near syncope. - Reevaluation(s) Reevaluation #1: Patient does have a very mild ROYAL indicating dehydration. The ketones in his urine suggest he is not eating well. Likely had a vasovagal episode. We will admit to the hospitalist service for rehydration and further evaluation. Accepted for admission by Dr. Lopez. Vital Signs Temperature 98.0 F 02/21/18 14:54 Pulse Rate 68 02/21/18 14:54 Respiratory Rate 18 02/21/18 14:54 Blood Pressure 112/72 02/21/18 14:54 O2 Sat by Pulse Oximetry 99 02/21/18 14:54 Temperature 98.0 F 02/21/18 14:54 Pulse Rate 58 02/21/18 17:30 Respiratory Rate 20 02/21/18 17:30 Blood Pressure 146/91 02/21/18 17:30 O2 Sat by Pulse Oximetry 96 02/21/18 17:30 Oxygen Delivery Oxygen Delivery Room Air Weakness - Lab Data Result diagrams: 02/21/18 15:49 02/21/18 15:49 Lab Results 02/21/18 02/21/18 02/21/18 Range/Units 15:49 15:49 15:49 WBC 4.9 (4.3-11.1) K/mcL RBC 4.34 (4.19-5.50) M/mcL Hgb 12.1 L (12.9-16.9) g/dL Hct 37.2 L (37.5-50.1) % MCV 85.7 (83.0-100.0) fL MCH 27.9 L (28.0-33.3) pg MCHC 32.5 (31.6-35.5) g/dL RDW 13.8 (11.5-14.5) % Plt Count 183 (140-400) K/mcL MPV 9.7 (9.4-12.4) fL Immature Gran % 0.2 (0-4) % Seg Neutrophils % 60.3 % Lymphocytes % 32.0 % Monocytes % 6.5 % Eosinophils % 0.6 % Basophils % 0.4 % Neutrophils # 3.0 (1.6-8.9) K/mcL Lymphocytes # 1.6 (0.6-4.6) K/mcL Monocytes # 0.3 (0.0-1.3) K/mcL Eosinophils # 0.0 (0.0-0.6) K/mcL Basophils # 0.0 (0.0-0.2) K/mcL Sodium 142 (136-145) mEq/L Potassium 4.3 (3.5-5.1) mEq/L Chloride 107 (98-107) mEq/L Carbon Dioxide 23 (23-29) mEq/L BUN 26 H (8-23) mg/dL Creatinine 1.32 H (0.70-1.30) mg/dL Est GFR ( Amer) > 60 (> 60) Est GFR (Non-Af Amer) 53 L (> 60) BUN/Creatinine Ratio 20 (6-26) Glucose 102 (70-105) mg/dL Calculated Osmolality 299 (280-300) Lactic Acid 2.1 (0.5-2.2) mmol/L Calcium 9.7 (8.6-10.3) mg/dL Venous Ioniz Calcium (1.15-1.35) mmol/L Magnesium 1.8 (1.6-2.6) mg/dL Total Bilirubin 0.2 L (0.3-1.0) mg/dL AST 15 (13-39) Units/L ALT 10 (7-52) Units/L Alkaline Phosphatase 64 (34-104) Units/L Troponin I < 0.03 (< 0.04) ng/mL Serum Total Protein 6.2 L (6.4-8.9) g/dL Albumin 4.2 (3.5-5.7) g/dL Globulin 2.0 L (2.4-3.5) g/dL Albumin/Globulin Ratio 2.1 (1.1-2.2) TSH 0.935 (0.340-5.600) mcIU/mL Urine Color (Yellow) Urine Clarity (Clear) Urine pH (5.0-8.0) pH Units Ur Specific [place] (1.010-1.025) Urine Protein (Neg-Trace) mg/dL Urine Glucose (UA) (Normal) mg/dL Urine Ketones (Negative) mg/dL Urine Blood (Negative) Urine Nitrite (Negative) Urine Bilirubin (Negative) Urine Urobilinogen (Normal) mg/dL Ur Leukocyte Esterase (Negative) Ur Culture Indicated? (NO) 02/21/18 02/21/18 Range/Units 16:14 16:51 WBC (4.3-11.1) K/mcL RBC (4.19-5.50) M/mcL Hgb (12.9-16.9) g/dL Hct (37.5-50.1) % MCV (83.0-100.0) fL MCH (28.0-33.3) pg MCHC (31.6-35.5) g/dL RDW (11.5-14.5) % Plt Count (140-400) K/mcL MPV (9.4-12.4) fL Immature Gran % (0-4) % Seg Neutrophils % % Lymphocytes % % Monocytes % % Eosinophils % % Basophils % % Neutrophils # (1.6-8.9) K/mcL Lymphocytes # (0.6-4.6) K/mcL Monocytes # (0.0-1.3) K/mcL Eosinophils # (0.0-0.6) K/mcL Basophils # (0.0-0.2) K/mcL Sodium (136-145) mEq/L Potassium (3.5-5.1) mEq/L Chloride (98-107) mEq/L Carbon Dioxide (23-29) mEq/L BUN (8-23) mg/dL Creatinine (0.70-1.30) mg/dL Est GFR ( Amer) (> 60) Est GFR (Non-Af Amer) (> 60) BUN/Creatinine Ratio (6-26) Glucose (70-105) mg/dL Calculated Osmolality (280-300) Lactic Acid (0.5-2.2) mmol/L Calcium (8.6-10.3) mg/dL Venous Ioniz Calcium 1.21 (1.15-1.35) mmol/L Magnesium (1.6-2.6) mg/dL Total Bilirubin (0.3-1.0) mg/dL AST (13-39) Units/L ALT (7-52) Units/L Alkaline Phosphatase (34-104) Units/L Troponin I (< 0.04) ng/mL Serum Total Protein (6.4-8.9) g/dL Albumin (3.5-5.7) g/dL Globulin (2.4-3.5) g/dL Albumin/Globulin Ratio (1.1-2.2) TSH (0.340-5.600) mcIU/mL Urine Color Yellow (Yellow) Urine Clarity Clear (Clear) Urine pH 5.5 (5.0-8.0) pH Units Ur Specific [place] 1.018 (1.010-1.025) Urine Protein Negative (Neg-Trace) mg/dL Urine Glucose (UA) Normal (Normal) mg/dL Urine Ketones Trace H (Negative) mg/dL Urine Blood Negative (Negative) Urine Nitrite Negative (Negative) Urine Bilirubin Negative (Negative) Urine Urobilinogen Normal (Normal) mg/dL Ur Leukocyte Esterase Negative (Negative) Ur Culture Indicated? NO (NO)
[2018-02-21 16:03] LABS: Basophils % 0.4 %; Eosinophils % 0.6 %; Hematocrit 37.2 % (37.5-50.1); Hemoglobin 12.1 g/dL (12.9-16.9); Immature Granulocytes % 0.2 % (0-4); Lymphocytes # 1.6 K/mcL (0.6-4.6); Mean Corpuscular HGB Conc 32.5 g/dL (31.6-35.5); Mean Corpuscular Hemoglobin 27.9 pg (28.0-33.3); Mean Corpuscular Volume 85.7 fL (83.0-100.0); Mean Platelet Volume 9.7 fL (9.4-12.4); Monocytes # 0.3 K/mcL (0.0-1.3); Monocytes % 6.5 %; Platelet Count 183 K/mcL (140-400); Red Blood Count 4.34 M/mcL (4.19-5.50); Red Cell Distribution Width 13.8 % (11.5-14.5); Segmented Neutrophils % 60.3 %
--- NOTE | 2018-02-21 16:12 | Emergency Department Note ---
Disposition Clinical Impression: Near syncope Disposition: Still a Patient Condition: Fair [facility]: [facility] [Primary Care Provider[facility] - Forms: ED Satisfaction Letter Weakness HPI - General Chief complaint: ED Weakness Stated complaint: Weakness Time Seen by Provider: 02/21/18 15:04 Source: patient, EMS Mode of arrival: EMS Limitations: no limitations - History of Present Illness Pain Scale: 0 - Related Data Home Medications Medication Instructions Recorded Confirmed Acetaminophen [Tylenol] 650 mg PO QID PRN 08/27/15 10/21/17 Amlodipine [Amlodipine Besylate] 10 mg PO DAILY 08/27/15 10/21/17 Aspirin [Adult Low Dose Aspirin EC] 81 mg PO DAILY 08/27/15 10/21/17 Atorvastatin [Lipitor] 40 mg PO HS 08/27/15 10/21/17 Cholecalciferol (Vitamin D3) 1,000 unit PO DAILY 08/27/15 10/21/17 [Vitamin D3] Docusate [Colace] 100 mg PO BID 08/27/15 10/21/17 Magnesium Oxide [Magnesium] 400 mg PO BID 08/27/15 10/21/17 Sertraline [Zoloft] 100 mg PO DAILY 08/27/15 10/21/17 metFORMIN [Glucophage] 500 mg PO BIDWM 08/27/15 10/21/17 Ammonium Lactate [Lac-Hydrin Five] 1 appl TP DAILY 10/21/17 10/21/17 Benztropine [Cogentin] 1 mg PO BID 10/21/17 10/21/17 Losartan [Cozaar] 12.5 mg PO QPM 10/21/17 10/21/17 Memantine HCl 10 mg PO BID 10/21/17 10/21/17 OLANZapine [Zyprexa] 5 mg PO QAM 10/21/17 10/21/17 OLANZapine [Zyprexa] 25 mg PO HS 10/21/17 10/21/17 Sotalol [Betapace] 80 mg PO Q12HR 10/21/17 10/21/17 hydroCHLOROthiazide 6.25 mg PO DAILY 10/21/17 10/21/17 [Hydrochlorothiazide] Previous Rx's Medication Instructions Recorded Apixaban [Eliquis] 5 mg PO BID #60 tablet 10/04/17 Allergies Allergy/AdvReac Type Severity Reaction Status Date / Time [place] Allergy Mild See Verified 10/21/17 20:20 Comments lisinopril Allergy See Verified 10/21/17 20:20 Comments Past Medical History - Past Medical History Medical history: Reports: dementia, diabetes, hyperlipidemia, hypertension, TIA , other Surgical history: Reports: herniorrhaphy Psychiatric history: Reports: anxiety, depression, PTSD, schizophrenia - Social History Smoking Status: Never smoker Smokeless Tobacco Status: No Alcohol use: Reports: none Drug use: Reports: none Physical Exam - General Limitations: no limitations General appearance: alert, other (Slow to respond, but otherwise alert) Course Vital Signs Temperature 98.0 F 02/21/18 14:54 Pulse Rate 68 02/21/18 14:54 Respiratory Rate 18 02/21/18 14:54 Blood Pressure 112/72 02/21/18 14:54 O2 Sat by Pulse Oximetry 99 02/21/18 14:54 Temperature 98.0 F 02/21/18 14:54 Pulse Rate 68 02/21/18 14:54 Respiratory Rate 18 02/21/18 14:54 Blood Pressure 112/72 02/21/18 14:54 O2 Sat by Pulse Oximetry 98 02/21/18 16:05 Oxygen Delivery Oxygen Delivery Room Air Weakness - Lab Data Result diagrams: 02/21/18 15:49 Lab Results 02/21/18 Range/Units 15:49 WBC 4.9 (4.3-11.1) K/mcL RBC 4.34 (4.19-5.50) M/mcL Hgb 12.1 L (12.9-16.9) g/dL Hct 37.2 L (37.5-50.1) % MCV 85.7 (83.0-100.0) fL MCH 27.9 L (28.0-33.3) pg MCHC 32.5 (31.6-35.5) g/dL RDW 13.8 (11.5-14.5) % Plt Count 183 (140-400) K/mcL MPV 9.7 (9.4-12.4) fL Immature Gran % 0.2 (0-4) % Seg Neutrophils % 60.3 % Lymphocytes % 32.0 % Monocytes % 6.5 % Eosinophils % 0.6 % Basophils % 0.4 % Neutrophils # 3.0 (1.6-8.9) K/mcL Lymphocytes # 1.6 (0.6-4.6) K/mcL Monocytes # 0.3 (0.0-1.3) K/mcL Eosinophils # 0.0 (0.0-0.6) K/mcL Basophils # 0.0 (0.0-0.2) K/mcL Attestation Statement - Attestation Attestation: I, Harvey Higgins, examined this patient and my medical decision-making was reviewed with the TELEGRAPH EQUIPMENT MAINTAINER/PA/Advanced Practice Nurse/Resident Physician. I agree with the documented findings, disposition and treatment plan as described except to the extent set forth below. 72-year-old male presents emergency Department [facility]. Patient had apparently been sitting in his recliner, walked to the dining area when he suddenly became very lightheaded, fatigued and weak. Patient needed help with ambulation at that time. He did not syncopized however his blood pressure dropped to 90/67. This occurred multiple times over the next hour per the group exercise manager. She denied bowel movement, urination or patient being medicated prior to this event. He denied chest pain during this. He denied palpitations. In the emergency department he is awake alert and answering questions appropriately. His lungs are clear to auscultation bilaterally. Abdomen is soft and nontender to palpation and there is no evidence of rigidity, guarding, rebound. Patient denies chest pain emergency department. Heart rate was a regular rate and rhythm. He is not hypertensive in the emergency department. We will evaluate for near syncope with chest x-ray , EKG and laboratory evaluation. Results and disposition pending at this time.
[2018-02-21 16:23] LABS: Alanine Aminotransferase 10 Units/L (7-52); Albumin 4.2 g/dL (3.5-5.7); Albumin/Globulin Ratio 2.1 (1.1-2.2); Alkaline Phosphatase 64 Units/L (34-104); Aspartate Amino Transferase 15 Units/L (13-39); BUN/Creatinine Ratio 20 (6-26); Bilirubin,Total 0.2 mg/dL (0.3-1.0); Blood Urea Nitrogen 26 mg/dL (8-23); Calcium 9.7 mg/dL (8.6-10.3); Carbon Dioxide 23 mEq/L (23-29); Chloride 107 mEq/L (98-107); Glucose 102 mg/dL (70-105); Magnesium 1.8 mg/dL (1.6-2.6); Osmolality,Calculated 299 (280-300); Potassium 4.3 mEq/L (3.5-5.1); Sodium 142 mEq/L (136-145); Total Protein 6.2 g/dL (6.4-8.9); eGFR For African Americans > 60 (> 60); eGFR For Non-African Americans 53 (> 60)
[2018-02-21 16:24] LABS: Troponin I < 0.03 ng/mL (< 0.04)
[2018-02-21 16:28] LABS: Bilirubin,Urine Negative (Negative); Blood,Urine Negative (Negative); Clarity,Urine Clear (Clear); Color,Urine Yellow (Yellow); Glucose,Urine (UA) Normal (Normal); Ketones,Urine Trace mg/dL (Negative); Leukocyte Esterase,Urine Negative (Negative); Nitrite,Urine Negative (Negative); PH,Urine 5.5 pH Units (5.0-8.0); Protein,Urine Negative (Neg-Trace); Specific Gravity,Urine 1.018 (1.010-1.025); Urobilinogen,Urine Normal (Normal)
[2018-02-21 16:37] LABS: Thyroid Stimulating Hormone 0.935 mcIU/mL (0.340-5.600)
[2018-02-21 16:54] LABS: VBG Ionized Calcium 1.21 mmol/L (1.15-1.35)
[2018-02-21] MEDS ORDERED: Naloxone 0.4 MG/ML INJ IVP PRN (18:12)
[2018-02-21] MEDS ORDERED: Dextrose Gel 15 GM/37.5 ML TUBE PO PRN ×2 (18:21)
[2018-02-21] MEDS ORDERED: *HR* Dextrose 50 % in Water (Syg) 50 ML SYRINGE IVP PRN (18:21)
[2018-02-21] MEDS ORDERED: D5% in Water 1,000 ML IVC PRN (18:21)
--- NOTE | 2018-02-21 18:25 | Internal Med History&Physical ---
Date of Encounter: 02/21/18 Time of Encounter: 18:25 Internal Medicine - H&P: HPI Chief complaint: Near syncopal episode Admitted From: Long-term Nursing Facility Plans for Post Hospital Care: Transfer Assisted Living Housekeeper Care History of present illness: Mr. Torres is a 72 year old male with history of HTN, cognitive d/o, DM type II, back pain, TIA and schizophrenia. The patient is a . The patient indicated that he was walking back to his room after lunchtime and began to have a near syncopal event. The patient apparently almost fell. The patient is a resident at [facility]. The patient indicated that he has had these episodes off and on for the past year. He had a a neurological workup in 10/2017 , and was found to have a ?normal pressure hydrocephalus, which neuro did not confirm. The patient was admitted to 10/2017 with AMS and weakness. A carotid duplex was completed and which was essentially negative. The changes were thought to be related to either, medication changes or hypertension. The patient was not thought to have had a seizure. Today the patient has ROYAL likely due to dehydration. Creat is 1.32 and bun is 26. Creat baseline is 1.08. Will get ortho's as the patient has history of orthostatic hypotension. Neuro checks q shift. Past Med Surg Social Fam HX - Past Medical History Medical history: dementia, diabetes, hyperlipidemia, hypertension, TIA, other Additional medical history: back pain Psychiatric history: anxiety, depression, PTSD, schizophrenia - Past Surgical History Surgical History: herniorrhaphy - Social History Smoking Status: Never smoker Smokeless Tobacco Status: No Alcohol use: none Drug use: none - Family History Mother Living Status: Father Living Status: Internal Medicine - H&P: Meds Acetaminophen [Tylenol] 650 mg PO QID PRN 08/27/15 [History] Amlodipine [Amlodipine Besylate] 10 mg PO DAILY 08/27/15 [History] Aspirin [Adult Low Dose Aspirin EC] 81 mg PO DAILY 08/27/15 [History] Atorvastatin [Lipitor] 40 mg PO HS 08/27/15 [History] Cholecalciferol (Vitamin D3) [Vitamin D3] 1,000 unit PO DAILY 08/27/15 [History] Docusate [Colace] 100 mg PO BID 08/27/15 [History] Magnesium Oxide [Magnesium] 400 mg PO BID 08/27/15 [History] Sertraline [Zoloft] 100 mg PO DAILY 08/27/15 [History] metFORMIN [Glucophage] 500 mg PO BIDWM 08/27/15 [History] Apixaban [Eliquis] 5 mg PO BID #60 tablet 10/04/17 [Rx] Ammonium Lactate [Lac-Hydrin Five] 1 appl TP DAILY 10/21/17 [History] Benztropine [Cogentin] 1 mg PO BID 10/21/17 [History] Losartan [Cozaar] 12.5 mg PO QPM 10/21/17 [History] Memantine HCl 10 mg PO BID 10/21/17 [History] OLANZapine [Zyprexa] 5 mg PO QAM 10/21/17 [History] OLANZapine [Zyprexa] 25 mg PO HS 10/21/17 [History] Sotalol [Betapace] 80 mg PO Q12HR 10/21/17 [History] hydroCHLOROthiazide [Hydrochlorothiazide] 6.25 mg PO DAILY 10/21/17 [History] Sennosides [Senokot] 8.6 mg PO DAILY 02/21/18 [History] 3 Allergy/AdvReac Type Severity Reaction Status Date / Time [place] Allergy Mild See Verified 02/21/18 16:11 Comments lisinopril Allergy See Verified 02/21/18 16:11 Comments All Systems PM: A 10-system review of systems was performed and is negative for pertinent findings except as documented above in the HPI. - Constitutional Constitutional: no chills, no fever(s), no night sweats - EENT Eyes: no change in vision, no discharge, no pain, no photophobia Ears: no ear discharge, no ear pain, no tinnitus Nose, mouth and throat: no dysphagia, no nasal discharge, no neck pain, no sore throat - Cardiovascular Cardiovascular ROS IM: lightheadedness, syncope, no chest pain, no diaphoresis, no dyspnea, no palpitations - Respiratory Respiratory: no cough, no dyspnea, no wheezing, no excessive phlegm production - Gastrointestinal Gastrointestinal: no abdominal pain, no diarrhea, no hematemesis, no hematochezia, no melena, no nausea, no vomiting - Musculoskeletal Musculoskeletal ROS IM: no numbness, no tingling - Integumentary Integumentary IM: no rash, no unusual bruising - Neurological Neurological ROS: no confusion, no convulsions, no focal weakness, no numbness, no tingling, no tremor(s) - Hematologic/Lymphatic Hematologic/Lymphatic: no easy bruising - Constitutional Vitals: Temp Pulse Resp BP Pulse Ox 98.0 F 55 20 146/89 100 02/21/18 14:54 02/21/18 18:00 02/21/18 18:00 02/21/18 18:00 02/21/18 18:00 - Head Head exam: Present: atraumatic, normocephalic - Eye Eye exam: Present: PERRL, conjuntiva pink, sclera anicteric Pupils: Present: PERRL - Neck Neck exam general surgery: Present: supple, trachea midline. Absent: lymphadenopathy - Respiratory Respiratory exam: Present: CTAB. Absent: accessory muscle use, rales, rhonchi, wheezes - Cardiovascular Cardiovascular exam: Present: RRR, +S1, +S2. Absent: diastolic murmur, gallop, rubs, systolic murmur - GI/Abdominal GI/Abdominal exam: Present: normal bowel sounds, soft, no peritoneal signs. Absent: distended, tenderness - Extremities Exam Extremities exam: Present: warm, radial pulses palpable and symmetrical. Absent : calf tenderness, cyanotic, pedal edema - Neurological Exam Neurological exam: Present: CN II-XII intact, oriented X3, no focal deficits. Absent: pronater drift, facial droop, speech deficit - Skin Skin exam: Present: dry, intact Internal Med - H&P Results - Labs CBC & Chem 7: 02/21/18 15:49 02/21/18 15:49 Labs: Short CBC 02/21/18 Range/Units 15:49 WBC 4.9 (4.3-11.1) K/mcL Hgb 12.1 L (12.9-16.9) g/dL Hct 37.2 L (37.5-50.1) % Plt Count 183 (140-400) K/mcL Neutrophils # 3.0 (1.6-8.9) K/mcL BMP 02/21/18 15:49 Sodium 142 Potassium 4.3 Chloride 107 Carbon Dioxide 23 BUN 26 H Creatinine 1.32 H Glucose 102 Calcium 9.7 Cardiac Enzymes 02/21/18 Range/Units 15:49 Troponin I < 0.03 (< 0.04) ng/mL Liver Function 02/21/18 Range/Units 15:49 Total Bilirubin 0.2 L (0.3-1.0) mg/dL AST 15 (13-39) Units/L ALT 10 (7-52) Units/L Alkaline Phosphatase 64 (34-104) Units/L Albumin 4.2 (3.5-5.7) g/dL Urine 02/21/18 Range/Units 16:14 Urine Color Yellow (Yellow) Urine Clarity Clear (Clear) Urine pH 5.5 (5.0-8.0) pH Units Ur Specific [place] 1.018 (1.010-1.025) Urine Protein Negative (Neg-Trace) mg/dL Urine Glucose (UA) Normal (Normal) mg/dL - Impressions ITS Impressions Chest X-Ray 02/21/18 15:10 IMPRESSION: No acute process. D/ / Lam Guerrero MD / Lam Guerrero MD Interpreting Provider: Lam Guerrero MD Head CT 02/21/18 15:12 IMPRESSION: No acute intracranial abnormality. D/ / Soco Bautista MD / Soco Bautista MD Interpreting Provider: Soco Bautista MD - Assessment and plan (1) Near syncope Current Visit: Yes Status: Acute Assessment and plan: Ct of head negative, the syncopal episode could be related to orthostatic hypotension or dehydration. IVF's Orthostatic bps' daily x2 Monitor daily labs Cardiac monitoring (2) ROYAL (acute kidney injury) Current Visit: Yes Status: Acute Assessment and plan: IVFS' Monitor daily labs (3) Orthostatic hypotension Current Visit: No Status: Acute Assessment and plan: Will get daily x 2, patient has history (4) Diabetes mellitus Current Visit: No Status: Chronic Assessment and plan: Blood glucose is controlled @ 102, Hold metformin Accu checks AC/HS with mild humalog insulin coverage Qualifiers: Diabetes mellitus type: type 2 Diabetes mellitus care home insulin use: without care home use Diabetes mellitus complication status: without complication Qualified Code(s): E11.9 - Type 2 diabetes mellitus without complications (5) HTN (hypertension) Current Visit: No Status: Chronic Assessment and plan: Bp is uncontrolled Goal is under 140/80 Continue home bp medications Qualifiers: Hypertension type: essential hypertension Qualified Code(s): I10 - Essential (primary) hypertension - Time Spent With Patient Total time spent is greater than 50% in coordination of care (as documented) at patient's floor/unit and/or counseling patient: less than 15 minutes
[2018-02-21] MEDS ORDERED: OLANZAPINE 25 MG PO SCH (21:00)
[2018-02-21] MEDS ORDERED: Insulin LISPRO 300 UNITS/3 ML VIAL SQ SCH (21:00)
[2018-02-21] MEDS: 0.9 % Sodium Chloride 1,000 ML IVC SCH (22:06)
[2018-02-21] MEDS: Apixaban 5 MG TABLET PO SCH (22:10)
[2018-02-21] MEDS: Magnesium Oxide 400 MG TABLET PO SCH (22:10)
[2018-02-22 05:25] LABS: Basophils % 0.5 %; Eosinophils % 0.9 %; Hematocrit 36.3 % (37.5-50.1); Hemoglobin 11.9 g/dL (12.9-16.9); Lymphocytes # 1.6 K/mcL (0.6-4.6); Lymphocytes % 36.7 %; Mean Corpuscular HGB Conc 32.8 g/dL (31.6-35.5); Mean Corpuscular Volume 85.4 fL (83.0-100.0); Monocytes # 0.4 K/mcL (0.0-1.3); Neutrophils # 2.2 K/mcL (1.6-8.9); Platelet Count 193 K/mcL (140-400); Red Blood Count 4.25 M/mcL (4.19-5.50); Red Cell Distribution Width 13.5 % (11.5-14.5); Segmented Neutrophils % 52.9 %
[2018-02-22 05:49] LABS: BUN/Creatinine Ratio 21 (6-26); Blood Urea Nitrogen 21 mg/dL (8-23); Calcium 9.1 mg/dL (8.6-10.3); Carbon Dioxide 25 mEq/L (23-29); Chloride 109 mEq/L (98-107); Chol/HDL Ratio 2.6 (0-4.9); Cholesterol 75 mg/dL (< 200); Glucose 124 mg/dL (70-105); HDL Cholesterol 29 mg/dL (40-59); LDL Cholesterol,Calculated 31 mg/dL (0-99); Osmolality,Calculated 296 (280-300); Sodium 141 mEq/L (136-145); Triglycerides 75 mg/dL (< 150); eGFR For African Americans > 60 (> 60); eGFR For Non-African Americans > 60 (> 60)
[2018-02-22 05:52] LABS: Troponin I < 0.03 ng/mL (< 0.04)
[2018-02-22] MEDS: Apixaban 5 MG TABLET PO SCH (08:23)
[2018-02-22] MEDS: Magnesium Oxide 400 MG TABLET PO SCH (08:23)
[2018-02-22] MEDS: 0.9 % Sodium Chloride 1,000 ML IVC SCH (08:23)
[2018-02-22] MEDS: Insulin LISPRO 300 UNITS/3 ML VIAL SQ SCH ×2 (08:24→12:50)
[2018-02-22] MEDS ORDERED: Cholecalciferol (D-3) 1,000 UNIT TABLET PO SCH (09:00)
[2018-02-22] MEDS ORDERED: Sennosides 8.6 MG TABLET PO SCH (09:00)
[2018-02-22] MEDS ORDERED: OLANZapine 5 MG TAB.RAPDIS PO SCH (09:00)
[2018-02-22] MEDS ORDERED: Aspirin Enteric Coated 81 MG Tablet PO SCH (09:00)
[2018-02-22] MEDS ORDERED: hydroCHLOROthiazide 25 MG TABLET PO SCH (09:00)
[2018-02-22] MEDS ORDERED: amLODIPine 5 MG TABLET PO SCH (09:00)
[2018-02-22] MEDS ORDERED: Ammonium Lactate 30 APPL/225 GM BOTTLE TP SCH (09:00)
[2018-02-22 11:40] VITALS: BP 111/67
--- NOTE | 2018-02-22 13:58 | Discharge Summary ---
Date of Encounter: 02/22/18 Time of Encounter: 13:58 Hospital course: Mr. Torres is a 72 year old male HTN, cognitive d/o, DM type II, back pain, TIA, a-fib on eliquis and schizophrenia presented to [facility] on 02/21/2018 after near-syncopal episodes at [facility]. He was placed in observation status for further workup and treatment. He underwent a brain MRI that showed essentially stable appearance of ventricles when compared to 10/2017 study. Of note patient was admitted October 2017 for same symptoms and an MRI at that time showed enlarged ventricles concerning for normal pressure hydrocephalus. He was evaluated by neurology at that time who did not feel symptoms were secondary to normal pressure hydrocephalus. Outpatient workup/ further evaluation was recommended that time however he has not seen neurology since then. Patient returned to baseline with supportive care. He was found to be orthostatic; has known hypertension on multiple antihypertensive agents. BPs were reviewed and BPs are elevated therefore he does require antihypertensive medication however suspect this is contributing to his orthostatic hypotension and recurrent near syncopal events. Discussed case with staff member at [facility] who reported that patient was seen at [facility] 2017 and HCTZ and losartan was stopped at this that time however both medications continue to be on patient's home medication list. Suspect this is contributing to recurrent symptoms. Will stop HCTZ and losartan. Continue home amlodipine at decreased dose; with advanced age and multiple morbidities patient may benefit from allowing BP to run slightly on the high side. Also expressed concern for patient living on second floor and he would benefit from a room on the first floor due to orthostatic hypotension and being on anticoagulation. BP can be closely monitored at [facility]. Recommend outpatient Neurology follow-up Discharge discussed with: patient (Seen and cemented at bedside. Patient says he feels back to baseline would like to discharge back to [facility] today if possible. I call [facility] and spoke with Chau at length regarding concern for current living arrangements with patient's room on second floor. Chau also noted that patient was recently seen at [facility] in October of this year and losartan and HCTZ was stopped at this time however he continued to take it. Recommended first-floor room if possible and also advised daily monitoring and locking of patient's blood pressure with close follow-up with PCP.) - Time Spent with Patient Total time spent providing and/or coordinating discharge services: - Discharge Medications Home Medications: Acetaminophen [Tylenol] 650 mg PO QID PRN 08/27/15 [History] Aspirin [Adult Low Dose Aspirin EC] 81 mg PO DAILY 08/27/15 [History] Atorvastatin [Lipitor] 40 mg PO HS 08/27/15 [History] Cholecalciferol (Vitamin D3) [Vitamin D3] 1,000 unit PO DAILY 08/27/15 [History] Docusate [Colace] 100 mg PO BID 08/27/15 [History] Magnesium Oxide [Magnesium] 400 mg PO BID 08/27/15 [History] Sertraline [Zoloft] 100 mg PO DAILY 08/27/15 [History] metFORMIN [Glucophage] 500 mg PO BIDWM 08/27/15 [History] Apixaban [Eliquis] 5 mg PO BID #60 tablet 10/04/17 [Rx] Ammonium Lactate [Lac-Hydrin Five] 1 appl TP DAILY 10/21/17 [History] Benztropine [Cogentin] 1 mg PO BID 10/21/17 [History] Memantine HCl 10 mg PO BID 10/21/17 [History] OLANZapine [Zyprexa] 5 mg PO QAM 10/21/17 [History] OLANZapine [Zyprexa] 25 mg PO HS 10/21/17 [History] Sotalol [Betapace] 80 mg PO Q12HR 10/21/17 [History] Sennosides [Senokot] 8.6 mg PO DAILY 02/21/18 [History] amLODIPine [Norvasc] 5 mg PO DAILY tablet 02/22/18 [Rx] Allergies/Adverse Reactions: 3 Allergy/AdvReac Type Severity Reaction Status Date / Time [place] Allergy Mild See Verified 02/21/18 16:11 Comments lisinopril Allergy See Verified 02/21/18 16:11 Comments Date of admission: 02/21/18 18:38 [facility] care physician: [facility] Consults: 02/21/18 23:06 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 Absent: lymphadenopathy - Respiratory Respiratory exam: Present: CTAB. Absent: accessory muscle use, rales, rhonchi, wheezes - Cardiovascular Cardiovascular exam: Present: RRR, +S1, +S2. Absent: diastolic murmur, gallop, rubs, systolic murmur - GI/Abdominal GI/Abdominal exam: Present: normal bowel sounds, soft, no peritoneal signs. Absent: distended, tenderness - Extremities Exam Extremities exam: Present: warm, radial pulses palpable and symmetrical. Absent : calf tenderness, cyanotic, pedal edema - Neurological Exam Neurological exam: Present: CN II-XII intact, oriented X3, no focal deficits. Absent: pronater drift, facial droop, speech deficit - Skin Skin exam: Present: dry, intact - Patient Status Disposition: Home Health Service Condition: Fair Functional capacity at discharge: uses cane/walker Overall status at discharge: patient is back to baseline - Discharge Instructions Instructions: Hypotension (DC), Syncope (DC) [facility] With: [facility] [Primary Care Provider] - (Please call for follow-up appt within one week) - Diet and Activity Activity: increase activity as tolerated Diet: advance to your usual diet
--- NOTE | 2018-02-22 14:44 | Physician Discharge Referral ---
Home Health/Hosp Referral Info Transfer to: Home Health Attending Provider: Alize Loja CNP Provider in Charge Post Discharge: PCP - Diagnosis (1) Schizophrenia Status: Acute (2) Atrial fibrillation Status: Chronic (3) Diabetes mellitus Status: Chronic (4) HTN (hypertension) Status: Chronic (5) Orthostatic hypotension Status: Acute - Respiratory Orders None Smoking Cessation: Smoking cessation has been advised. For more information, call the [place] Tobacco Quit Line at 7-902-BHRA-NOW. - Diet/Nutrition Diet/Nutrition Orders: No Concentrated Sweets - Activity Activity Orders: Ambulate - Services Needed Following services are medically necessary services: Nursing, Home Health Aide, Physical Therapy, Occupational Therapy - Transfer Medications Home Medications: Acetaminophen [Tylenol] 650 mg PO QID PRN 08/27/15 [History] Aspirin [Adult Low Dose Aspirin EC] 81 mg PO DAILY 08/27/15 [History] Atorvastatin [Lipitor] 40 mg PO HS 08/27/15 [History] Cholecalciferol (Vitamin D3) [Vitamin D3] 1,000 unit PO DAILY 08/27/15 [History] Docusate [Colace] 100 mg PO BID 08/27/15 [History] Magnesium Oxide [Magnesium] 400 mg PO BID 08/27/15 [History] Sertraline [Zoloft] 100 mg PO DAILY 08/27/15 [History] metFORMIN [Glucophage] 500 mg PO BIDWM 08/27/15 [History] Apixaban [Eliquis] 5 mg PO BID #60 tablet 10/04/17 [Rx] Ammonium Lactate [Lac-Hydrin Five] 1 appl TP DAILY 10/21/17 [History] Benztropine [Cogentin] 1 mg PO BID 10/21/17 [History] Memantine HCl 10 mg PO BID 10/21/17 [History] OLANZapine [Zyprexa] 5 mg PO QAM 10/21/17 [History] OLANZapine [Zyprexa] 25 mg PO HS 10/21/17 [History] Sotalol [Betapace] 80 mg PO Q12HR 10/21/17 [History] Sennosides [Senokot] 8.6 mg PO DAILY 02/21/18 [History] amLODIPine [Norvasc] 5 mg PO DAILY tablet 02/22/18 [Rx] Allergies/Adverse Reactions: 3 Allergy/AdvReac Type Severity Reaction Status Date / Time [place] Allergy Mild See Verified 02/21/18 16:11 Comments lisinopril Allergy See Verified 02/21/18 16:11 Comments Certification: Further, I certify that my clinical findings support that this patient is homebound (i.e. absences from home require considerable and taxing effort and are for medical reasons or [facility] or infrequently or short duration when for other reasons) because: Homebound Reason: Patient requires assistance of a person or device to safely leave home Attestation: My signature below is to certify that this patient is under my care and that I, or nurse practitioner, or a physician's assistant account manager working with me, has a face-to -face encounter with this patient.
--- NOTE | 2018-02-23 06:43 | Electrocardiograph Report ---
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
== END 2018-02-22 15:37 | disposition home health service (06) ==
LOC: 3BNU 14:49 → EMEROO 14:49 → 3BNU 19:36
PROVIDERS: ADMIT Internal Medicine Nephrology; ATTEND Internal Medicine Nephrology

== ENCOUNTER 2021-03-26 14:13 | Inpatient (IN) ==
[2021-03-26] MEDS ORDERED: Isovue-370 500 ML BOTTLE IVP ONE (15:13)
[2021-03-26 16:20] LABS: Basophils % 1.1 %; Eosinophils % 1.4 %; Hematocrit 35.7 % (37.5-50.1); Hemoglobin 11.5 g/dL (12.9-16.9); Lymphocytes # 1.2 K/mcL (0.6-4.6); Lymphocytes % 41.1 %; Mean Corpuscular HGB Conc 32.2 g/dL (31.6-35.5); Mean Corpuscular Hemoglobin 28.2 pg (28.0-33.3); Mean Corpuscular Volume 87.5 fL (83.0-100.0); Mean Platelet Volume 9.3 fL (9.4-12.4); Monocytes # 0.3 K/mcL (0.0-1.3); Monocytes % 8.9 %; Neutrophils # 1.3 K/mcL (1.6-8.9); Platelet Count 212 K/mcL (140-400); Red Blood Count 4.08 M/mcL (4.19-5.50); Red Cell Distribution Width 13.8 % (11.5-14.5); Segmented Neutrophils % 47.5 %; White Blood Count 2.8 K/mcL (4.3-11.1)
[2021-03-26 16:43] LABS: BUN/Creatinine Ratio 13 (6-26); Blood Urea Nitrogen 11 mg/dL (8-23); Carbon Dioxide 28 mEq/L (23-29); Chloride 107 mEq/L (98-107); Glucose 106 mg/dL (70-105); Osmolality,Calculated 290 (280-300); Potassium 3.9 mEq/L (3.5-5.1); Sodium 140 mEq/L (136-145); Troponin I < 0.03 ng/mL (< 0.04); eGFR For African Americans > 60 (> 60); eGFR For Non-African Americans > 60 (> 60)
[2021-03-26 17:45] LABS: Bilirubin,Urine Negative (Negative); Blood,Urine Negative (Negative); Clarity,Urine Clear (Clear); Color,Urine Colorless (Yellow); Glucose,Urine (UA) Normal (Normal); Ketones,Urine Negative (Negative); Leukocyte Esterase,Urine Negative (Negative); Nitrite,Urine Negative (Negative); PH,Urine 7.5 pH Units (5.0-8.0); Protein,Urine Negative (Neg-Trace); Urobilinogen,Urine Normal (Normal)
[2021-03-26 17:52] LABS: Adenovirus Not Detected (Not Detect); Coronavirus 229E Not Detected (Not Detect); Coronavirus HKU1 Not Detected (Not Detect); Coronavirus NL63 Not Detected (Not Detect); Coronavirus OC43 Not Detected (Not Detect); SARS-CoV-2 Not Detected (Not Detect)
[2021-03-26 17:53] LABS: Bordetella Pertussis Not Detected (Not Detect); Chlamydophila pneumoniae Not Detected (Not Detect); Human Metapneumovirus Not Detected (Not Detect); Human Rhinovirus/Enterovirus Not Detected (Not Detect); Influenza A Subtype 2009 H1 Not Detected (Not Detect); Influenza B Not Detected (Not Detect); Mycoplasma pneumoniae Not Detected (Not Detect); Parainfluenza Virus 1 Not Detected (Not Detect); Parainfluenza Virus 2 Not Detected (Not Detect); Parainfluenza Virus 3 Not Detected (Not Detect); Parainfluenza Virus 4 Not Detected (Not Detect); Respiratory Syncytial Virus Not Detected (Not Detect)
[2021-03-26] MEDS ORDERED: Perflutren Lipid Microsphere 1.3 ML in 0.9 % Sodium Chloride 8.7 ML IVP PRN (20:39)
[2021-03-26] MEDS ORDERED: Ondansetron 4 MG/2 ML VIAL IVP PRN (20:43)
[2021-03-26] MEDS ORDERED: Acetaminophen 325 MG TABLET PO PRN (20:43)
[2021-03-26] MEDS ORDERED: Naloxone 0.4 MG/ML INJ IVP PRN (20:43)
[2021-03-27 00:09] LABS: Amphetamine Screen,Urine Negative ng/mL (Cutoff=1000); Barbiturate Screen,Urine Negative ng/mL (Cutoff=200); Benzodiazepines Screen,Urine Negative ng/mL (Cutoff=200); Cannabinoid Screen,Urine Negative ng/mL (Cutoff = 50); Cocaine Screen,Urine Negative ng/mL (Cutoff= 300); Opiate Screen,Urine Negative ng/mL (Cutoff=300); Phencyclidine Screen,Urine Negative ng/mL (Cutoff=25)
[2021-03-27 05:06] LABS: Basophils # 0.1 K/mcL (0.0-0.2); Basophils % 1.3 %; Eosinophils # 0.1 K/mcL (0.0-0.6); Eosinophils % 2.2 %; Hematocrit 33.4 % (37.5-50.1); Hemoglobin 10.6 g/dL (12.9-16.9); Immature Granulocytes % 0.3 % (0-4); Lymphocytes # 1.6 K/mcL (0.6-4.6); Lymphocytes % 43.3 %; Mean Corpuscular HGB Conc 31.7 g/dL (31.6-35.5); Mean Corpuscular Hemoglobin 27.6 pg (28.0-33.3); Mean Platelet Volume 9.9 fL (9.4-12.4); Monocytes # 0.4 K/mcL (0.0-1.3); Monocytes % 10.5 %; Neutrophils # 1.6 K/mcL (1.6-8.9); Platelet Count 213 K/mcL (140-400); Red Blood Count 3.84 M/mcL (4.19-5.50); Red Cell Distribution Width 13.7 % (11.5-14.5); Segmented Neutrophils % 42.4 %; White Blood Count 3.7 K/mcL (4.3-11.1)
[2021-03-27 05:24] LABS: Alanine Aminotransferase 7 Units/L (7-52); Albumin 4.1 g/dL (3.5-5.7); Albumin/Globulin Ratio 2.1 (1.1-2.2); Alkaline Phosphatase 52 Units/L (34-104); Aspartate Amino Transferase 13 Units/L (13-39); BUN/Creatinine Ratio 15 (6-26); Bilirubin,Total 0.4 mg/dL (0.3-1.0); Blood Urea Nitrogen 14 mg/dL (8-23); Calcium 9.6 mg/dL (8.6-10.3); Carbon Dioxide 26 mEq/L (23-29); Chloride 108 mEq/L (98-107); Chol/HDL Ratio 2.9 (0-4.9); Cholesterol 103 mg/dL (< 200); Glucose 67 mg/dL (70-105); HDL Cholesterol 36 mg/dL (40-59); INR 1.2; LDL Cholesterol,Calculated 57 mg/dL (< 100); Osmolality,Calculated 291 (280-300); Potassium 3.6 mEq/L (3.5-5.1); Prothrombin Time 13.6 Seconds (9.4-12.1); Sodium 141 mEq/L (136-145); Total Protein 6.1 g/dL (6.4-8.9); Triglycerides 51 mg/dL (< 150); Troponin I < 0.03 ng/mL (< 0.04); eGFR For African Americans > 60 (> 60); eGFR For Non-African Americans > 60 (> 60)
[2021-03-27 05:32] LABS: Estimated Average Glucose 120 mg/dl; Hemoglobin A1C 5.8 %
[2021-03-27] MEDS ORDERED: Sennosides 8.6 MG TABLET PO PRN (12:06)
[2021-03-27] MEDS: Apixaban 5 MG TABLET PO SCH ×2 (12:41→21:58)
[2021-03-27] MEDS: OLANZapine 10 MG TAB.RAPDIS PO SCH (21:58)
[2021-03-27] MEDS: Magnesium Oxide 400 MG TABLET PO SCH (21:58)
[2021-03-28] MEDS: polyethylene glycoL 3350 17 GM POWD.PACK PO SCH (08:36)
[2021-03-28] MEDS: OLANZapine 5 MG TAB.RAPDIS PO SCH (08:37)
[2021-03-28] MEDS: Aspirin Enteric Coated 81 MG Tablet PO SCH (08:38)
[2021-03-28] MEDS: Apixaban 5 MG TABLET PO SCH ×2 (08:38→20:22)
[2021-03-28] MEDS: amLODIPine 5 MG TABLET PO SCH (08:39)
[2021-03-28] MEDS: Magnesium Oxide 400 MG TABLET PO SCH ×2 (08:39→20:22)
[2021-03-28] MEDS: OLANZapine 10 MG TAB.RAPDIS PO SCH (20:19)
[2021-03-29] MEDS: polyethylene glycoL 3350 17 GM POWD.PACK PO SCH (08:18)
[2021-03-29] MEDS: amLODIPine 5 MG TABLET PO SCH (08:19)
[2021-03-29] MEDS: Aspirin Enteric Coated 81 MG Tablet PO SCH (08:19)
[2021-03-29] MEDS: OLANZapine 5 MG TAB.RAPDIS PO SCH (08:20)
[2021-03-29] MEDS: Apixaban 5 MG TABLET PO SCH ×2 (08:20→21:14)
[2021-03-29] MEDS: Magnesium Oxide 400 MG TABLET PO SCH ×2 (08:20→21:13)
[2021-03-29] MEDS: OLANZapine 10 MG TAB.RAPDIS PO SCH (21:14)
[2021-03-30] MEDS: Apixaban 5 MG TABLET PO SCH ×2 (08:19→20:23)
[2021-03-30] MEDS: OLANZapine 5 MG TAB.RAPDIS PO SCH (08:20)
[2021-03-30] MEDS: Aspirin Enteric Coated 81 MG Tablet PO SCH (08:20)
[2021-03-30] MEDS: Magnesium Oxide 400 MG TABLET PO SCH ×2 (08:21→20:22)
[2021-03-30] MEDS: polyethylene glycoL 3350 17 GM POWD.PACK PO SCH (08:21)
[2021-03-30] MEDS: amLODIPine 5 MG TABLET PO SCH (08:21)
[2021-03-30] MEDS: OLANZapine 10 MG TAB.RAPDIS PO SCH (20:23)
[2021-03-31] MEDS: Magnesium Oxide 400 MG TABLET PO SCH ×2 (08:33→21:14)
[2021-03-31] MEDS: Aspirin Enteric Coated 81 MG Tablet PO SCH (08:33)
[2021-03-31] MEDS: Apixaban 5 MG TABLET PO SCH ×2 (08:33→21:14)
[2021-03-31] MEDS: OLANZapine 5 MG TAB.RAPDIS PO SCH (08:35)
[2021-03-31] MEDS: polyethylene glycoL 3350 17 GM POWD.PACK PO SCH (08:36)
[2021-03-31] MEDS: amLODIPine 5 MG TABLET PO SCH (08:37)
[2021-03-31 10:20] LABS: Adenovirus Not Detected (Not Detect); Bordetella Pertussis Not Detected (Not Detect); Chlamydophila pneumoniae Not Detected (Not Detect); Coronavirus 229E Not Detected (Not Detect); Coronavirus HKU1 Not Detected (Not Detect); Coronavirus NL63 Not Detected (Not Detect); Coronavirus OC43 Not Detected (Not Detect); Human Metapneumovirus Not Detected (Not Detect); Human Rhinovirus/Enterovirus Not Detected (Not Detect); Influenza A Subtype 2009 H1 Not Detected (Not Detect); Influenza B Not Detected (Not Detect); Mycoplasma pneumoniae Not Detected (Not Detect); Parainfluenza Virus 1 Not Detected (Not Detect); Parainfluenza Virus 2 Not Detected (Not Detect); Parainfluenza Virus 3 Not Detected (Not Detect); Parainfluenza Virus 4 Not Detected (Not Detect); Respiratory Syncytial Virus Not Detected (Not Detect); SARS-CoV-2 Not Detected (Not Detect)
[2021-03-31 15:56] VITALS: O2SAT 98
[2021-03-31 19:28] VITALS: BP 133/77; PULSE 58; TEMP 98.5
[2021-03-31] MEDS: OLANZapine 10 MG TAB.RAPDIS PO SCH (21:14)
== END 2021-04-01 00:35 | disposition other institution (70) | DRG 74 ==
LOC: 3ANU 14:13 → EMEROOARM 14:13 → SUATTDRO 21:50 → 3ANU 22:36
PROVIDERS: ADMIT Internal Medicine; ATTEND Hospitalist

== ENCOUNTER 2021-04-12 19:07 | Observation (INO) ==
[2021-04-12 20:11] LABS: Basophils % 0.4 %; Eosinophils % 0.6 %; Hematocrit 34.4 % (37.5-50.1); Immature Granulocytes % 0.2 % (0-4); Lymphocytes # 1.1 K/mcL (0.6-4.6); Mean Corpuscular Hemoglobin 28.2 pg (28.0-33.3); Mean Corpuscular Volume 88.2 fL (83.0-100.0); Mean Platelet Volume 9.9 fL (9.4-12.4); Monocytes # 0.4 K/mcL (0.0-1.3); Neutrophils # 3.5 K/mcL (1.6-8.9); Platelet Count 195 K/mcL (140-400); Red Cell Distribution Width 13.6 % (11.5-14.5); Segmented Neutrophils % 69.8 %
[2021-04-12 20:20] LABS: Bilirubin,Urine Negative (Negative); Blood,Urine Negative (Negative); Clarity,Urine Clear (Clear); Color,Urine Colorless (Yellow); Glucose,Urine (UA) Normal (Normal); Ketones,Urine Negative (Negative); Leukocyte Esterase,Urine Negative (Negative); Nitrite,Urine Negative (Negative); PH,Urine 6.5 pH Units (5.0-8.0); Protein,Urine Negative (Neg-Trace); Specific Gravity,Urine 1.008 (1.010-1.025); Urobilinogen,Urine Normal (Normal)
[2021-04-12 20:31] LABS: Amphetamine Screen,Urine Negative ng/mL (Cutoff=1000); Barbiturate Screen,Urine Negative ng/mL (Cutoff=200); Benzodiazepines Screen,Urine Negative ng/mL (Cutoff=200); Cannabinoid Screen,Urine Negative ng/mL (Cutoff = 50); Cocaine Screen,Urine Negative ng/mL (Cutoff= 300); Opiate Screen,Urine Negative ng/mL (Cutoff=300); Phencyclidine Screen,Urine Negative ng/mL (Cutoff=25)
[2021-04-12 20:33] LABS: Alanine Aminotransferase 7 Units/L (7-52); Albumin 4.4 g/dL (3.5-5.7); Albumin/Globulin Ratio 1.6 (1.1-2.2); Aspartate Amino Transferase 15 Units/L (13-39); BUN/Creatinine Ratio 17 (6-26); Bilirubin,Direct 0.1 mg/dL (0.0-0.2); Bilirubin,Indirect 0.3 mg/dL (0.0-1.0); Bilirubin,Total 0.4 mg/dL (0.3-1.0); Blood Urea Nitrogen 17 mg/dL (8-23); Calcium 9.5 mg/dL (8.6-10.3); Carbon Dioxide 26 mEq/L (23-29); Chloride 106 mEq/L (98-107); Ethanol < 10 mg/dL (Less than 10); Globulin 2.7 g/dL (2.4-3.5); Glucose 159 mg/dL (70-105); Osmolality,Calculated 295 (280-300); Potassium 3.8 mEq/L (3.5-5.1); Sodium 140 mEq/L (136-145); Total Protein 7.1 g/dL (6.4-8.9); eGFR For African Americans > 60 (> 60); eGFR For Non-African Americans > 60 (> 60)
[2021-04-12 20:41] LABS: Troponin I < 0.03 ng/mL (< 0.04)
[2021-04-12 20:52] LABS: Alkaline Phosphatase 68 Units/L (34-104)
[2021-04-12] MEDS ORDERED: Naloxone 0.4 MG/ML INJ IVP PRN (23:13)
[2021-04-12] MEDS ORDERED: Acetaminophen 325 MG TABLET PO PRN (23:13)
[2021-04-12] MEDS ORDERED: Ondansetron 4 MG/2 ML VIAL IVP PRN (23:13)
[2021-04-13 01:19] LABS: Influenza A PCR Negative (Negative); Influenza B PCR Negative (Negative); Resp. Syncytial Virus PCR Negative (Negative)
[2021-04-13 01:21] LABS: SARS-CoV-2 by PCR (In House) Negative (Negative)
[2021-04-13] MEDS ORDERED: D5% in Water 1,000 ML IVC PRN (01:58)
[2021-04-13] MEDS ORDERED: *HR* Dextrose 50 % in Water (Vial) 50 ML VIAL IVP PRN (01:58)
[2021-04-13] MEDS ORDERED: Dextrose Gel 15 GM/37.5 ML TUBE PO PRN ×2 (01:58)
[2021-04-13 06:41] LABS: BUN/Creatinine Ratio 16 (6-26); Blood Urea Nitrogen 14 mg/dL (8-23); Calcium 9.6 mg/dL (8.6-10.3); Carbon Dioxide 28 mEq/L (23-29); Chloride 109 mEq/L (98-107); Glucose 72 mg/dL (70-105); Osmolality,Calculated 293 (280-300); Potassium 3.7 mEq/L (3.5-5.1); Sodium 142 mEq/L (136-145); eGFR For African Americans > 60 (> 60); eGFR For Non-African Americans > 60 (> 60)
[2021-04-13 06:53] LABS: Thyroid Stimulating Hormone 3.538 mcIU/mL (0.340-5.600)
[2021-04-13 07:02] LABS: Folate 9.6 ng/mL (3.0-16.0)
[2021-04-13 07:17] LABS: INR 1.1; Prothrombin Time 12.7 Seconds (9.4-12.1)
[2021-04-13] MEDS: Insulin LISPRO 300 UNITS/3 ML VIAL SUBQ SCH ×3 (10:25→18:49)
[2021-04-13 10:50] LABS: Estimated Average Glucose 120 mg/dl; Hemoglobin A1C 5.8 %
[2021-04-13 12:13] LABS: Basophils % 0.9 %; Eosinophils % 0.7 %; Hematocrit 33.1 % (37.5-50.1); Hemoglobin 10.6 g/dL (12.9-16.9); Lymphocytes # 1.7 K/mcL (0.6-4.6); Lymphocytes % 37.1 %; Mean Corpuscular Hemoglobin 28.3 pg (28.0-33.3); Mean Corpuscular Volume 88.5 fL (83.0-100.0); Mean Platelet Volume 10.5 fL (9.4-12.4); Monocytes # 0.4 K/mcL (0.0-1.3); Monocytes % 9.2 %; Neutrophils # 2.4 K/mcL (1.6-8.9); Platelet Count 193 K/mcL (140-400); Red Blood Count 3.74 M/mcL (4.19-5.50); Red Cell Distribution Width 13.5 % (11.5-14.5); Segmented Neutrophils % 52.1 %; White Blood Count 4.6 K/mcL (4.3-11.1)
[2021-04-13] MEDS: amLODIPine 5 MG TABLET PO SCH (15:27)
[2021-04-13] MEDS ORDERED: Acetaminophen 325 MG TABLET PO PRN (19:10)
[2021-04-13] MEDS ORDERED: Sennosides 8.6 MG TABLET PO PRN (19:10)
[2021-04-13] MEDS: Magnesium Oxide 400 MG TABLET PO SCH (20:36)
[2021-04-13] MEDS ORDERED: OLANZapine 10 MG TAB.RAPDIS PO SCH (21:00)
[2021-04-14] MEDS: Magnesium Oxide 400 MG TABLET PO SCH (07:58)
[2021-04-14] MEDS: amLODIPine 5 MG TABLET PO SCH (07:59)
[2021-04-14] MEDS: Insulin LISPRO 300 UNITS/3 ML VIAL SUBQ SCH (08:09)
[2021-04-14] MEDS ORDERED: Aspirin Enteric Coated 81 MG Tablet PO SCH (09:00)
[2021-04-14] MEDS ORDERED: Thiamine (B-1) 100 MG TABLET PO SCH (09:00)
[2021-04-14] MEDS ORDERED: Cholecalciferol (D-3) 1,000 UNIT (25MCG) TABLET PO SCH (09:00)
[2021-04-14 14:16] VITALS: BP 175/91; PULSE 64; TEMP 98.3; O2SAT 97
== END 2021-04-14 15:47 | disposition home or self-care (01) ==
LOC: EMEROOARM 19:07 → 3NENU 19:07
PROVIDERS: ADMIT Internal Medicine; ATTEND Internal Medicine

== ENCOUNTER 2022-02-05 09:48 | Observation (INO) ==
[2022-02-05] MEDS ORDERED: amLODIPine 5 MG TABLET PO ONE ×2 (10:45→15:53)
[2022-02-05 12:14] LABS: Hematocrit 38.1 % (37.5-50.1); Hemoglobin 11.9 g/dL (12.9-16.9); Mean Corpuscular HGB Conc 31.2 g/dL (31.6-35.5); Mean Corpuscular Hemoglobin 27.8 pg (28.0-33.3); Mean Platelet Volume 11.6 fL (9.4-12.4); Platelet Count 151 K/mcL (140-400); Red Blood Count 4.28 M/mcL (4.19-5.50); Red Cell Distribution Width 13.5 % (11.5-14.5); White Blood Count 3.6 K/mcL (4.3-11.1)
[2022-02-05 13:18] LABS: Alanine Aminotransferase 6 Units/L (7-52); Albumin 4.1 g/dL (3.5-5.7); Albumin/Globulin Ratio 1.6 (1.1-2.2); Alkaline Phosphatase 58 Units/L (34-104); Aspartate Amino Transferase 27 Units/L (13-39); BUN/Creatinine Ratio 15 (6-26); Bilirubin,Direct 0.1 mg/dL (0.0-0.2); Bilirubin,Indirect 0.4 mg/dL (0.0-1.0); Bilirubin,Total 0.5 mg/dL (0.3-1.0); Blood Urea Nitrogen 15 mg/dL (8-23); Calcium 9.7 mg/dL (8.6-10.3); Carbon Dioxide 27 mEq/L (23-29); Chloride 107 mEq/L (98-107); Ethanol < 10 mg/dL (Less than 10); Globulin 2.5 g/dL (2.4-3.5); Glucose 174 mg/dL (70-105); Osmolality,Calculated 295 (280-300); Potassium 4.7 mEq/L (3.5-5.1); Sodium 140 mEq/L (136-145); Total Protein 6.6 g/dL (6.4-8.9); Troponin I < 0.03 ng/mL (< 0.04); eGFR For African Americans > 60 (> 60); eGFR For Non-African Americans > 60 (> 60)
[2022-02-05 15:15] LABS: Amorphous Sediment,Urine Few per hpf (None-Few); Bacteria,Urine Few per hpf (None-Few); Bilirubin,Urine Negative (Negative); Blood,Urine Small (Negative); Clarity,Urine Clear (Clear); Color,Urine Light-Yellow (Yellow); Glucose,Urine (UA) Normal (Normal); Hyaline Casts,Urine Few per lpf (None Seen); Ketones,Urine Negative (Negative); Leukocyte Esterase,Urine Negative (Negative); Mucus,Urine Few per lpf (None-Few); Nitrite,Urine Negative (Negative); Protein,Urine Negative (Neg-Trace); RBC,Urine 30-50 per hpf (0-3); Specific Gravity,Urine 1.014 (1.010-1.025); Urobilinogen,Urine Normal (Normal); WBC,Urine 0-3 per hpf (0-3)
[2022-02-05 15:52] LABS: Amphetamine Screen,Urine Negative ng/mL (Cutoff=1000); Barbiturate Screen,Urine Negative ng/mL (Cutoff=200); Benzodiazepines Screen,Urine Negative ng/mL (Cutoff=200); Cannabinoid Screen,Urine Negative ng/mL (Cutoff = 50); Cocaine Screen,Urine Negative ng/mL (Cutoff= 300); Opiate Screen,Urine Negative ng/mL (Cutoff=300); Phencyclidine Screen,Urine Negative ng/mL (Cutoff=25)
[2022-02-05] MEDS ORDERED: Naloxone 0.4 MG/ML INJ IVP PRN (17:59)
[2022-02-05] MEDS ORDERED: Acetaminophen 325 MG TABLET PO PRN (17:59)
[2022-02-05] MEDS ORDERED: Iopamidol - 370 500 ML MLS IVP ONE (18:06)
[2022-02-05] MEDS ORDERED: Sennosides 8.6 MG TABLET PO PRN (18:59)
[2022-02-05] MEDS ORDERED: D5% in Water 1,000 ML IVC PRN (19:38)
[2022-02-05] MEDS ORDERED: Dextrose Gel 15 GM/37.5 ML TUBE PO PRN ×2 (19:38)
[2022-02-05] MEDS ORDERED: *HR* Heparin 5,000 UNIT/ML VIAL SQ SCH (22:00)
[2022-02-05] MEDS: OLANZapine 10 MG TAB.RAPDIS PO SCH (22:28)
[2022-02-05] MEDS: Magnesium Oxide 400 MG TABLET PO SCH (22:30)
[2022-02-05] MEDS: Carbidopa/Levodopa 25/100 TABLET PO SCH (22:30)
[2022-02-05] MEDS: Thiamine (B-1) 100 MG TABLET PO SCH (22:30)
[2022-02-06] MEDS: Insulin LISPRO 300 UNITS/3 ML VIAL SUBQ SCH ×4 (00:53→17:01)
[2022-02-06] MEDS: *HR* Dextrose 50 % in Water (Syg) 50 ML SYRINGE IVP PRN ×2 (00:56→05:25)
[2022-02-06 05:58] LABS: Basophils % 0.5 %; Eosinophils % 0.2 %; Hematocrit 38.2 % (37.5-50.1); Hemoglobin 12.1 g/dL (12.9-16.9); Immature Granulocytes % 0.2 % (0-4); Lymphocytes # 1.5 K/mcL (0.6-4.6); Lymphocytes % 35.2 %; Mean Corpuscular HGB Conc 31.7 g/dL (31.6-35.5); Mean Corpuscular Volume 88.4 fL (83.0-100.0); Mean Platelet Volume 9.9 fL (9.4-12.4); Monocytes # 0.4 K/mcL (0.0-1.3); Monocytes % 9.5 %; Neutrophils # 2.2 K/mcL (1.6-8.9); Platelet Count 181 K/mcL (140-400); Red Blood Count 4.32 M/mcL (4.19-5.50); Red Cell Distribution Width 13.4 % (11.5-14.5); Segmented Neutrophils % 54.4 %; White Blood Count 4.1 K/mcL (4.3-11.1)
[2022-02-06 06:17] LABS: BUN/Creatinine Ratio 15 (6-26); Blood Urea Nitrogen 14 mg/dL (8-23); Calcium 9.5 mg/dL (8.6-10.3); Carbon Dioxide 29 mEq/L (23-29); Chloride 105 mEq/L (98-107); Glucose 188 mg/dL (70-105); Osmolality,Calculated 293 (280-300); Phosphorous 3.5 mg/dL (2.7-4.5); Potassium 3.7 mEq/L (3.5-5.1); Sodium 139 mEq/L (136-145); eGFR For African Americans > 60 (> 60); eGFR For Non-African Americans > 60 (> 60)
[2022-02-06] MEDS: Aspirin Enteric Coated 81 MG Tablet PO SCH (10:33)
[2022-02-06] MEDS: Cholecalciferol (D-3) 1,000 UNIT (25MCG) TABLET PO SCH (10:33)
[2022-02-06] MEDS: polyethylene glycoL 3350 17 GM POWD.PACK PO SCH (10:33)
[2022-02-06] MEDS: Magnesium Oxide 400 MG TABLET PO SCH ×2 (10:33→20:23)
[2022-02-06] MEDS: amLODIPine 5 MG TABLET PO SCH (10:33)
[2022-02-06] MEDS: Carbidopa/Levodopa 25/100 TABLET PO SCH ×3 (10:33→20:22)
[2022-02-06] MEDS: Thiamine (B-1) 100 MG TABLET PO SCH ×2 (10:33→20:22)
[2022-02-06] MEDS: OLANZapine 5 MG TAB.RAPDIS PO SCH (10:33)
[2022-02-06] MEDS ORDERED: 0.9 % Sodium Chloride 500 ML IVC ONE (15:22)
[2022-02-06] MEDS: OLANZapine 10 MG TAB.RAPDIS PO SCH (20:23)
[2022-02-07] MEDS: Insulin LISPRO 300 UNITS/3 ML VIAL SUBQ SCH ×3 (01:29→12:02)
[2022-02-07 06:01] LABS: Basophils % 0.4 %; Eosinophils % 0.2 %; Hematocrit 37.6 % (37.5-50.1); Hemoglobin 11.9 g/dL (12.9-16.9); Immature Granulocytes % 0.2 % (0-4); Lymphocytes # 1.6 K/mcL (0.6-4.6); Mean Corpuscular HGB Conc 31.6 g/dL (31.6-35.5); Mean Corpuscular Hemoglobin 28.2 pg (28.0-33.3); Mean Corpuscular Volume 89.1 fL (83.0-100.0); Mean Platelet Volume 10.1 fL (9.4-12.4); Monocytes # 0.5 K/mcL (0.0-1.3); Neutrophils # 2.4 K/mcL (1.6-8.9); Platelet Count 167 K/mcL (140-400); Red Blood Count 4.22 M/mcL (4.19-5.50); Red Cell Distribution Width 13.5 % (11.5-14.5); Segmented Neutrophils % 54.2 %; White Blood Count 4.5 K/mcL (4.3-11.1)
[2022-02-07 07:11] VITALS: PULSE 64
[2022-02-07 07:21] LABS: BUN/Creatinine Ratio 17 (6-26); Blood Urea Nitrogen 16 mg/dL (8-23); Calcium 9.6 mg/dL (8.6-10.3); Carbon Dioxide 27 mEq/L (23-29); Chloride 108 mEq/L (98-107); Glucose 86 mg/dL (70-105); Osmolality,Calculated 292 (280-300); Potassium 3.9 mEq/L (3.5-5.1); Sodium 141 mEq/L (136-145); eGFR For African Americans > 60 (> 60); eGFR For Non-African Americans > 60 (> 60)
[2022-02-07] MEDS: OLANZapine 5 MG TAB.RAPDIS PO SCH (08:45)
[2022-02-07] MEDS: Cholecalciferol (D-3) 1,000 UNIT (25MCG) TABLET PO SCH (08:45)
[2022-02-07] MEDS: Thiamine (B-1) 100 MG TABLET PO SCH (08:45)
[2022-02-07] MEDS: amLODIPine 5 MG TABLET PO SCH (08:45)
[2022-02-07] MEDS: polyethylene glycoL 3350 17 GM POWD.PACK PO SCH (08:45)
[2022-02-07] MEDS: Magnesium Oxide 400 MG TABLET PO SCH (08:45)
[2022-02-07] MEDS: Aspirin Enteric Coated 81 MG Tablet PO SCH (08:45)
[2022-02-07] MEDS: Carbidopa/Levodopa 25/100 TABLET PO SCH (08:46)
[2022-02-07 11:54] VITALS: BP 164/83; TEMP 97.9; O2SAT 99
== END 2022-02-07 12:55 | disposition home or self-care (01) ==
LOC: 3BNU 09:48 → EMEROOARM 09:48 → 2ANU 09:48
PROVIDERS: ADMIT Internal Medicine; ATTEND Internal Medicine

== ENCOUNTER 2022-03-13 18:24 | Inpatient (IN) ==
[2022-03-13] MEDS ORDERED: *HR* LORazepam 2 MG/ML VIAL ONE (18:27)
[2022-03-13] MEDS ORDERED: *HR* LORazepam 2 MG/ML VIAL IVP ONE (18:30)
[2022-03-13] MEDS ORDERED: Iopamidol - 370 500 ML MLS IVP ONE (18:34)
[2022-03-13 18:51] LABS: Hematocrit 37.5 % (37.5-50.1); Hemoglobin 11.9 g/dL (12.9-16.9); Mean Corpuscular HGB Conc 31.7 g/dL (31.6-35.5); Mean Corpuscular Hemoglobin 28.2 pg (28.0-33.3); Mean Corpuscular Volume 88.9 fL (83.0-100.0); Platelet Count 183 K/mcL (140-400); Red Blood Count 4.22 M/mcL (4.19-5.50); Red Cell Distribution Width 13.3 % (11.5-14.5); White Blood Count 6.7 K/mcL (4.3-11.1)
[2022-03-13 19:00] LABS: INR 1.1; Prothrombin Time 12.1 Seconds (9.4-12.1)
[2022-03-13 19:02] LABS: Activated Partial Thrombo Time 27.8 Seconds (26.0-36.0)
[2022-03-13 19:03] LABS: BUN/Creatinine Ratio 28 (6-26); Blood Urea Nitrogen 27 mg/dL (8-23); Calcium 9.5 mg/dL (8.6-10.3); Carbon Dioxide 28 mEq/L (23-29); Chloride 106 mEq/L (98-107); Creatine Kinase 15 Units/L (30-223); Ethanol < 10 mg/dL (Less than 10); Glucose 104 mg/dL (70-105); Osmolality,Calculated 293 (280-300); Potassium 4.4 mEq/L (3.5-5.1); Sodium 139 mEq/L (136-145); eGFR For African Americans > 60 (> 60); eGFR For Non-African Americans > 60 (> 60)
[2022-03-13 19:04] LABS: Troponin I < 0.03 ng/mL (< 0.04)
[2022-03-13 19:41] LABS: Bilirubin,Urine Negative (Negative); Blood,Urine Negative (Negative); Clarity,Urine Clear (Clear); Color,Urine Light-Yellow (Yellow); Glucose,Urine (UA) Normal (Normal); Ketones,Urine Negative (Negative); Leukocyte Esterase,Urine Negative (Negative); Nitrite,Urine Negative (Negative); PH,Urine 6.5 pH Units (5.0-8.0); Protein,Urine Trace mg/dL (Neg-Trace); Specific Gravity,Urine > 1.030 (1.010-1.025); Urobilinogen,Urine Normal (Normal)
[2022-03-13 19:50] LABS: Amphetamine Screen,Urine Negative ng/mL (Cutoff=1000); Barbiturate Screen,Urine Negative ng/mL (Cutoff=200); Benzodiazepines Screen,Urine Negative ng/mL (Cutoff=200); Cannabinoid Screen,Urine Negative ng/mL (Cutoff = 50); Cocaine Screen,Urine Negative ng/mL (Cutoff= 300); Opiate Screen,Urine Negative ng/mL (Cutoff=300); Phencyclidine Screen,Urine Negative ng/mL (Cutoff=25)
[2022-03-13] MEDS ORDERED: Naloxone 0.4 MG/ML INJ IVP PRN (20:40)
[2022-03-13] MEDS ORDERED: Acetaminophen 325 MG TABLET PO PRN (20:40)
[2022-03-13] MEDS ORDERED: Ondansetron 4 MG/2 ML VIAL IVP PRN (20:40)
[2022-03-13] MEDS ORDERED: Perflutren Lipid Microsphere 1.3 ML in 0.9 % Sodium Chloride 8.7 ML IVP PRN (20:42)
[2022-03-13] MEDS ORDERED: D5% in Water 1,000 ML IVC PRN (22:47)
[2022-03-13] MEDS ORDERED: *HR* Dextrose 50 % in Water (Syg) 50 ML SYRINGE IVP PRN (22:47)
[2022-03-13] MEDS ORDERED: Dextrose Gel 15 GM/37.5 ML TUBE PO PRN ×2 (22:47)
[2022-03-13] MEDS: Insulin LISPRO 300 UNITS/3 ML VIAL SUBQ SCH (23:16)
[2022-03-14 02:34] LABS: Hematocrit 34.6 % (37.5-50.1); Hemoglobin 10.9 g/dL (12.9-16.9); Mean Corpuscular HGB Conc 31.5 g/dL (31.6-35.5); Mean Corpuscular Volume 88.9 fL (83.0-100.0); Mean Platelet Volume 10.1 fL (9.4-12.4); Platelet Count 153 K/mcL (140-400); Red Blood Count 3.89 M/mcL (4.19-5.50); Red Cell Distribution Width 13.4 % (11.5-14.5)
[2022-03-14 02:44] LABS: Estimated Average Glucose 128 mg/dl; Hemoglobin A1C 6.1 %
[2022-03-14 02:51] LABS: Chol/HDL Ratio 2.8 (0-4.9)
[2022-03-14 02:53] LABS: BUN/Creatinine Ratio 29 (6-26); Blood Urea Nitrogen 24 mg/dL (8-23); Calcium 9.1 mg/dL (8.6-10.3); Carbon Dioxide 25 mEq/L (23-29); Chloride 107 mEq/L (98-107); Glucose 90 mg/dL (70-105); Osmolality,Calculated 288 (280-300); Potassium 4.1 mEq/L (3.5-5.1); Sodium 137 mEq/L (136-145); eGFR For African Americans > 60 (> 60); eGFR For Non-African Americans > 60 (> 60)
[2022-03-14] MEDS: Insulin LISPRO 300 UNITS/3 ML VIAL SUBQ SCH ×3 (06:34→17:10)
[2022-03-14] MEDS: Thiamine (B-1) 100 MG TABLET PO SCH (17:38)
[2022-03-15] MEDS: Insulin LISPRO 300 UNITS/3 ML VIAL SUBQ SCH ×5 (00:25→23:59)
[2022-03-15 06:26] LABS: Folate 11.1 ng/mL (3.0-16.0)
[2022-03-15] MEDS: Thiamine (B-1) 100 MG TABLET PO SCH (09:25)
[2022-03-15] MEDS ORDERED: *HR* LORazepam 1 MG TABLET PO PRN (14:56)
[2022-03-15] MEDS ORDERED: *HR* LORazepam 2 MG/ML VIAL ONE (16:27)
[2022-03-15] MEDS ORDERED: *HR* LORazepam 2 MG/ML VIAL IVP ONE (16:38)
[2022-03-15] MEDS: Aspirin Enteric Coated 81 MG Tablet PO SCH (16:38)
[2022-03-15] MEDS: amLODIPine 5 MG TABLET PO SCH (16:39)
[2022-03-15] MEDS: Carbidopa/Levodopa 25/100 TABLET PO SCH ×2 (16:39→20:54)
[2022-03-15] MEDS ORDERED: OLANZapine 5 MG TAB.RAPDIS PO SCH (21:00)
[2022-03-16] MEDS: Insulin LISPRO 300 UNITS/3 ML VIAL SUBQ SCH ×3 (05:50→17:10)
[2022-03-16] MEDS ORDERED: OLANZapine 10 MG TAB.RAPDIS PO SCH (09:00)
[2022-03-16] MEDS: Aspirin Enteric Coated 81 MG Tablet PO SCH (09:34)
[2022-03-16] MEDS: Magnesium Oxide 400 MG TABLET PO SCH (09:37)
[2022-03-16] MEDS: Sennosides/Docusate Sodium TABLET PO SCH ×2 (09:39→21:03)
[2022-03-16] MEDS: Cholecalciferol (D-3) 1,000 UNIT (25MCG) TABLET PO SCH (09:40)
[2022-03-16] MEDS: amLODIPine 5 MG TABLET PO SCH (09:40)
[2022-03-16] MEDS: Carbidopa/Levodopa 25/100 TABLET PO SCH ×3 (09:40→21:03)
[2022-03-16] MEDS: Thiamine (B-1) 100 MG TABLET PO SCH (09:41)
[2022-03-17] MEDS: Insulin LISPRO 300 UNITS/3 ML VIAL SUBQ SCH ×2 (01:01→05:53)
[2022-03-17] MEDS: amLODIPine 5 MG TABLET PO SCH (09:06)
[2022-03-17] MEDS: Cholecalciferol (D-3) 1,000 UNIT (25MCG) TABLET PO SCH (09:06)
[2022-03-17] MEDS: Carbidopa/Levodopa 25/100 TABLET PO SCH (09:06)
[2022-03-17] MEDS: Magnesium Oxide 400 MG TABLET PO SCH (09:06)
[2022-03-17] MEDS: Aspirin Enteric Coated 81 MG Tablet PO SCH (09:06)
[2022-03-17] MEDS: Sennosides/Docusate Sodium TABLET PO SCH (09:06)
[2022-03-17] MEDS: Thiamine (B-1) 100 MG TABLET PO SCH (09:06)
[2022-03-17 11:28] VITALS: BP 131/82; PULSE 61; TEMP 98.2; O2SAT 94
== END 2022-03-17 12:22 | DRG 948 ==
LOC: 3BNU 18:24 → EMEROOARM 18:24 → SUATTDRO 20:37 → 3BNU 21:42 → SUATTDRO 03-14 17:55
PROVIDERS: ADMIT Internal Medicine; ATTEND Internal Medicine